=== PATIENT | female | born 1995 | race Caucasian/White ===

== ENCOUNTER → 2019-04-16 13:21 | Outpatient (CLI) | payer BC, SELFPAY ==
[2019-04-16 16:28] LABS: Chlamydia Trachomatis by PCR Negative (Negative); Neisserai gonorrhoeae by PCR Negative (Negative); Probe Check PASS; Sample Adequacy Control PASS; Specimen Processing Control PASS
[2019-04-24 15:00] LABS: HPV APTIMA, High Risk Negative (Negative); HPV Reflexed? YES, CHARGE PATIENT
== END ==
PROVIDERS: Visit Provider Obstetrics & Gynecology
DX: Z12.4 Encounter for screening for malignant neoplasm of cervix (principal); Z11.3 Encounter for screening for infections with a predominantly sexual mode of transmission
CPT/HCPCS: 87491; 87591; 87624; 88175; G0145

== ENCOUNTER → 2019-04-24 06:50 | Outpatient (CLI) | payer BC, SELFPAY ==
[2019-04-24 07:54] LABS: Glucose 75GTT - Fasting 95 mg/dL (70-99)
[2019-04-24 08:37] LABS: Insulin 75GTT - Fasting 10.6 mU/L (2.6-37.6)
[2019-04-24 08:37] LABS: Glucose 75GTT - 30 minutes 179 mg/dL (100-160)
[2019-04-24 08:41] LABS: Glucose 75GTT - 60 minutes 182 mg/dL (100-160)
[2019-04-24 08:55] LABS: Free T3 2.7 pg/mL (2.18-3.98); Prolactin 40.6 ng/mL; T4 Free Direct 1.05 ng/dL (0.76-1.46); Thyroid Stim Hormone (TSH) 3.77 uIU/mL (0.358-3.74)
[2019-04-24 08:56] LABS: Insulin 75GTT - 30 MIN 74.7 mU/L (Not Estab.)
[2019-04-24 08:56] LABS: Insulin 75GTT - 60 min 127.6 mU/L (Not Estab)
[2019-04-24 09:17] LABS: Progesterone Level 0.62 ng/mL (See Comment); Vitamin D,25 Hydroxy 24.6 ng/mL (29.95-100.01)
[2019-04-24 09:51] LABS: Glucose 75GTT - 120 minutes 55 mg/dL (70-140)
[2019-04-24 09:59] LABS: Insulin 75GTT - 120 min 15.8 mU/L (Not Estab.)
[2019-04-25 03:06] LABS: DHEA Sulfate 169.9 ug/dL (110.0-431.7)
[2019-04-27 13:28] LABS: 17-Hydroxyprogesterone 70 ng/dL (.)
[2019-04-27 13:43] LABS: Sex Hormone-binding Globulin 38.4 nmol/L (24.6-122.0)
[2019-04-30 16:07] LABS: Thyroid Peroxidase AB 9 IU/mL (0-34)
[2019-05-02 12:51] LABS: Thyroglobulin Antibody < 1.0 IU/mL (0.0-0.9)
== END ==
PROVIDERS: Referring Provider Obstetrics & Gynecology; Visit Provider Obstetrics & Gynecology
DX: N92.6 Irregular menstruation, unspecified (principal); E28.8 Other ovarian dysfunction
CPT/HCPCS: 36415; 82306; 82533; 82627; 82670; 82951; 82952; 83001; 83498; 83525; 84144; 84146; 84270; 84403; 84439; 84443; 84481; 86376; 86800; 82626

== ENCOUNTER → 2019-07-03 13:03 | Outpatient (CLI) | payer BC, SELFPAY ==
[2019-07-03 17:16] LABS: Chlamydia Trachomatis by PCR Negative (Negative); Neisserai gonorrhoeae by PCR Negative (Negative); Probe Check PASS; Sample Adequacy Control PASS; Specimen Processing Control PASS
== END ==
PROVIDERS: Visit Provider Obstetrics & Gynecology
DX: Z11.3 Encounter for screening for infections with a predominantly sexual mode of transmission (principal)
CPT/HCPCS: 87491; 87591

== ENCOUNTER → 2019-07-21 10:42 | Outpatient (CLI) | payer BC, SELFPAY ==
[2019-07-21 13:45] LABS: Color, Urine Yellow (Yellow); Glucose, Dipstick Normal (Normal); Ketone-Dipstick Negative (Negative); Leukocyte Esterase-Dipstick Negative /ul (Negative); Nitrite-Dipstick Negative (Negative); Occult Blood-Urine Negative /ul (Negative); Protein-Dipstick Negative (Negative); Specific Gravity, Urine 1.015 (1.002-1.030); Urine Bilirubin Dipstick Negative (Negative); Urine Clarity Sl. Cloudy (Clear); Urine Urobilinogen Normal (Normal)
[2019-07-21 13:50] LABS: Absolute Neutrophil Count 6.8 X10^3/uL (2.0-7.7); Basophil# 0.03 X10^3/uL; Basophil% 0.3 % (0-1); Eosinophils% 1.2 % (0-5); Hematocrit 37.5 % (37-47); Hemoglobin 12.8 g/dL (12.0-15.0); Mean Corp Hgb Conc 34.1 g/dL (32-36); Mean Corpuscular Hgb 29.5 pg (27.0-32.0); Mean Corpuscular Volume 86.4 fL (81-99); Mean Platelet Vol. 10.4 fl (6.2-12.0); Monocyte# 0.39 X10^3/uL; Monocyte% 4.5 % (0-10); NRBC Flagged by Analyzer 0 % (0-5); Neutrophil # 6.84 X10^3/uL (2.7-7.7); Neutrophil % 78.8 % (47-70); Platelet Count 257 K/mm3 (150-450); RBC Distribution Width CV 12.8 % (11.6-14.6); RBC Distribution Width SD 39.8 fl (35.1-43.9); Red Blood Count 4.34 M/mm3 (4.2-5.4); White Blood Count 8.7 K/mm3 (4.4-11.0)
[2019-07-21 14:05] LABS: Thyroid Stim Hormone (TSH) 1.03 uIU/mL (0.358-3.74)
[2019-07-21 14:07] LABS: Amphetamine Urine VISTA NEGATIVE (<1000 ng/mL); Barbiturate Urine VISTA NEGATIVE (< 200 ng/mL); Benzodiazepine Urine VISTA NEGATIVE (< 200 ng/mL); Cocaine Urine VISTA NEGATIVE (< 300 ng/mL); Ecstacy Urine VISTA NEGATIVE (< 500 ng/mL); Methadone Urine VISTA NEGATIVE (< 300 ng/mL); PCP Urine VISTA NEGATIVE (< 25 ng/mL); THC Urine VISTA POSITIVE (< 50 ng/mL); Vista UDS pH Range 6
[2019-07-21 14:48] LABS: HIV - WCH Non-Reactive (Nonreactive); Hepatitis B Surface Antigen Non-Reactive (Nonreactive); Hepatitis C Antibody Non-Reactive (Nonreactive); Vitamin D,25 Hydroxy 32.8 ng/mL (29.95-100.01)
[2019-07-24 00:56] LABS: Prenatal RPR NONREACTIVE (NONREACTIVE)
== END ==
PROVIDERS: Visit Provider Obstetrics & Gynecology
DX: Z34.81 Encounter for supervision of other normal pregnancy, first trimester (principal)
CPT/HCPCS: 36415; 80307; 81002; 82306; 84443; 85025; 86703; 86762; 86803; 87340

== ENCOUNTER → 2019-12-09 09:47 | Outpatient (CLI) | payer BC, SELFPAY ==
[2019-12-09 10:47] LABS: Hematocrit 32.9 % (37-47); Hemoglobin 11.3 g/dL (12.0-15.0); Mean Corp Hgb Conc 34.3 g/dL (32-36); Mean Corpuscular Hgb 30.2 pg (27.0-32.0); Mean Platelet Vol. 10.5 fl (6.2-12.0); Platelet Count 189 K/mm3 (150-450); RBC Distribution Width CV 13.2 % (11.6-14.6); RBC Distribution Width SD 41.9 fl (35.1-43.9); Red Blood Count 3.74 M/mm3 (4.2-5.4); White Blood Count 12.9 K/mm3 (4.4-11.0)
[2019-12-09 11:29] LABS: Glucose Challenge Gest 1H 50g 189 mg/dL (70-140); T4 Free Direct 0.77 ng/dL (0.76-1.46); Thyroid Stim Hormone (TSH) 2.08 uIU/mL (0.358-3.74)
== END ==
PROVIDERS: Visit Provider Obstetrics & Gynecology
DX: O99.283 Endocrine, nutritional and metabolic diseases complicating pregnancy, third trimester (principal); E55.9 Vitamin D deficiency, unspecified; E03.9 Hypothyroidism, unspecified; Z3A.00 Weeks of gestation of pregnancy not specified
CPT/HCPCS: 36415; 82306; 82950; 84439; 84443; 85027

== ENCOUNTER → 2019-12-19 10:00 | Outpatient (CLI) | payer BC, SELFPAY ==
[2019-12-19 11:10] LABS: Glucose GTT-Gestation. Fasting 90 mg/dL (<105)
[2019-12-19 11:48] LABS: Glucose GTT-Gestational 1 Hr 173 mg/dL (<190)
[2019-12-19 13:29] LABS: Glucose GTT-Gestational 2 Hr 163 mg/dL (<165)
[2019-12-19 13:55] LABS: Glucose GTT-Gestational 3 Hr 85 L (<145)
== END ==
LOC: LAB 10:03
PROVIDERS: Referring Provider Obstetrics & Gynecology; Visit Provider Obstetrics & Gynecology
DX: O24.419 Gestational diabetes mellitus in pregnancy, unspecified control (principal); Z3A.00 Weeks of gestation of pregnancy not specified
CPT/HCPCS: 36415; 82951; 82952

== ENCOUNTER → 2020-02-03 | Outpatient (CLI) | payer BC, SELFPAY | END | disposition home or self-care (01) | LOC: LABSPEC 14:58 | PROVIDERS: Visit Provider Obstetrics & Gynecology | DX: Z36.85 Encounter for antenatal screening for Streptococcus B (principal) | CPT/HCPCS: 87081 ==

== ENCOUNTER → 2020-02-16 10:35 | Outpatient (CLI) | payer BC, SELFPAY | PROVIDERS: Referring Provider Obstetrics & Gynecology; Visit Provider Obstetrics & Gynecology | DX: Z34.03 Encounter for supervision of normal first pregnancy, third trimester (principal); Z11.59 Encounter for screening for other viral diseases | CPT/HCPCS: 87635; G2023; U0003 ==

== ENCOUNTER 2020-02-21 07:13 | Inpatient (IN) | payer BC, SELFPAY ==
[2020-02-21] VITALS (44 sets, daily range): BP systolic 99–196; BP diastolic 56–98; PULSE 81–100; TEMP 35.8–37.6; O2SAT 94–98; BMI 39.0
[2020-02-21] MEDS: Lactated Ringers 1,000 ML 50 ML IV (07:50)
[2020-02-21 08:26] LABS: Absolute Lymphocyte Count 1.52 X10^3/uL (0.83-4.51); Absolute Neutrophil Count 9.3 X10^3/uL (2.0-7.7); Basophil# 0.02 X10^3/uL; Basophil% 0.2 % (0-1); Eosinophils% 0.9 % (0-5); Hematocrit 31.5 % (37-47); Hemoglobin 10.4 g/dL (12.0-15.0); Lymphocyte # 1.52 X10^3/ul (4.0); Lymphocyte % 12.9 % (19-41); Mean Corpuscular Hgb 28.4 pg (27.0-32.0); Mean Corpuscular Volume 86.1 fL (81-99); Mean Platelet Vol. 11.5 fl (6.2-12.0); Monocyte# 0.71 X10^3/uL; NRBC Flagged by Analyzer 0 % (0-5); Neutrophil % 79.2 % (47-70); Platelet Count 216 K/mm3 (150-450); RBC Distribution Width CV 13.6 % (11.6-14.6); RBC Distribution Width SD 42.3 fl (35.1-43.9); Red Blood Count 3.66 M/mm3 (4.2-5.4); White Blood Count 11.7 K/mm3 (4.4-11.0)
[2020-02-21] MEDS: Oxytocin 30 units/NS 500 ml 30 UNITS/500 ML IV.SOLN IV (08:47)
[2020-02-21 08:50] LABS: Amphetamine Urine VISTA NEGATIVE (<1000 ng/mL); Barbiturate Urine VISTA NEGATIVE (< 200 ng/mL); Benzodiazepine Urine VISTA NEGATIVE (< 200 ng/mL); Cocaine Urine VISTA NEGATIVE (< 300 ng/mL); Ecstacy Urine VISTA NEGATIVE (< 500 ng/mL); Methadone Urine VISTA NEGATIVE (< 300 ng/mL); PCP Urine VISTA NEGATIVE (< 25 ng/mL); THC Urine VISTA NEGATIVE (< 50 ng/mL); Vista UDS pH Range 6
--- NOTE | 2020-02-21 10:01 | HP.PCM_ITS ---
- Problem List (1) 39 weeks gestation of Status: Acute History Date of Admission: 02/21/20 Final CHRIS: 02/28/20 Final CHRIS Source: US <20 weeks Gestational age: 39 Weeks and 0 Days History of this : This is a 24 year-old, G [1], P [], at 39 weeks gestational age presenting for elective induction of labor. She is without complaints. Reports good movement. Has mild contractions. Medical History: Medical History (Last Updated 02/21/20 @ 10:[address] Shaista Daniels MD) Insulin resistance E88.81 Subclinical hypothyroidism E03.9 Allergies Penicillins Allergy (Verified 02/21/20 07:57) Rash Home Medications: Home Medications Acetaminophen 650 mg PO Q8H 02/21/20 Smoking Status: Never smoker Alcohol: None Substance Use Type: Marijuana Number of Fetus(es): 1 NST - FHR Rate Baby A Baseline: 130 Variability:: Moderate Accelerations:: 15 x 15 Decelerations:: None NST Reactive:: Yes FHR Category:: Category I Uterine Activity:: 1-2/10 min History Past Pregnancies: Past Pregnancies Delivery Date Name GA/ Weeks Outcome Route Wt Infant Sex Labor Length Anesthesia Delivery Location Provider FOB Labs: Mom's Problem List Problem Status Onset Code 39 weeks gestation of Acute Z3A.39 Mom's Labs & Results 02/21/20 02/21/20 02/21/20 07:30 07:30 07:30 WBC 11.7 H RBC 3.66 L Hgb 10.4 L Hct 31.5 L MCV 86.1 MCH 28.4 MCHC 33.0 RDW Std Deviation 42.3 RDW Coeff of Baldemar 13.6 Plt Count 216 MPV 11.5 Immature Gran % (Auto) 0.800 Neut % (Auto) 79.2 H Lymph % (Auto) 12.9 L Sweet Grass % (Auto) 6.0 Eos % (Auto) 0.9 Baso % (Auto) 0.2 Absolute Neuts (auto) 9.3 H Absolute Lymphs (auto) 1.52 Nucleated RBC % 0 Urine Opiates Screen NEGATIVE Urine Methadone Screen NEGATIVE Ur Barbiturates Screen NEGATIVE Ur Phencyclidine Scrn NEGATIVE Ur Amphetamines Screen NEGATIVE U Methamphetamin-MDMA NEGATIVE U Benzodiazepines Scrn NEGATIVE Urine Cocaine Screen NEGATIVE U Cannabinoids Screen NEGATIVE Ur Drug Screen Comment Blood Type A POSITIVE Antibody Screen NEGATIVE Course Did the patient receive Yes care? Labs Blood Type: A RH: POSITIVE RPR/VDRL/Syphilis Nonreactive Rubella status Immune HbSAg Negative Date Done: 07/21/19 Chlamydia Negative Gonorrhea Negative HIV/AIDS Non-Reactive Group B Strep: Negative Current Obstetrical History Gestational Diabetes No Incompetent Cervix No Infertility No IUGR No Macrosomia Yes Hypertension/Pre-eclampsia No Placenta Previa/Abruption No PTL/PROM No Uterine anomaly No Oligohydramnios No Polyhydramnios No Multiple gestation No Past Medical History Asthma No Diabetes No Hypertension No Heart disease No Mitral valve prolapse No Neurologic/Seizure disorder/ No Migraines Kidney disease No Liver disease No Varicosities No Clotting disorders/Hx of DVT No Thyroid Dysfunction Yes: hypothyroid Other medical diseases No Psychiatric disorders No Major trauma No Abnormal PAP smear No Sleep apnea No Mammogram in the last 2 years No Social History Marital Status: SINGLE Alleged father Daniel Hx Smoking No Smoking Status Never smoker Substance Use Type Marijuana How long have you used 2 years substances (years)? What date/time did you last May 2019, Thanksgiving use any of the above? Have you had any previous No inpatient or outpatient treatment Expected Infant Delivery Method: Spontaneous Vaginal Number of Visits: 12 Review of Systems Constitutional: Denies: Chills, Fever, Fatigue HEENT: Denies: Head Aches, Visual Changes Cardiovascular: Denies: Chest Pain Respiratory: Denies: Shortness of Breath Gastrointestinal: Denies: Abdominal Pain, Nausea, Vomiting Gynecological: Denies: Vaginal bleeding Physical Exam Vitals: Vital Signs Temp Pulse BP Pulse Ox 99.1 F 93 127/68 H 97 02/21/20 09:32 02/21/20 09:32 02/21/20 09:32 02/21/20 09:32 General: Alert, Oriented x3, Cooperative, No apparent distress HEENT: Atraumatic, Normocephalic Cardiovascular: Regular rate, Regular Rhythm, Normal S1, Normal S2 Lungs: Clear to auscultation, Normal air movement Abdomen: Soft, Non Tender, Non-Distended, Gravid Neurological: Neuro grossly intact Presentation: Cephalic Cervix Dilation (cm): 3 - per RN exam [place] Station: -3 Effacement (%): 60 Assessment/Plan All Active Problems (Last Updated 02/21/20 @ 10:[address] Shaista Daniels MD) 39 weeks gestation of (Acute) This is a 24 year-old, G [1], P [], at 39 weeks gestational age -EFW 4100g -Outpatient COVID19 test negative -Proceed with pitocin as planned -Maternal and statuses reassuring
[2020-02-21] MEDS: Lactated Ringers 500 ML 999 ML IV (15:37)
[2020-02-21] MEDS: fentaNYL-bupivacaine (epidural) 100 ML BAG EPIDURAL ×2 (16:32→21:09)
[2020-02-21] MEDS: Lactated Ringers 1,000 ML 200 ML IV ×2 (18:18→22:23)
--- NOTE | 2020-02-21 20:15 | PCM.PN.BLA ---
Progress Note LABOR PROGRESS NOTE Comfortable with epidural, no complaints. Feels well. AVSS GEN - NAD, AAO x 3 SVE 5/70/-2 per RN exam at 1944h TOCO 5/10 min FHR 115, moderate variability, +accelerations, no decelerations A/P: 24yo G1 @ 39wga, IOL on pitocin, s/p amniotomy, Cat I FHR -Continue pitocin as tolerated by mother and fetus. -Maternal and statuses reassuring. STROKE Vital Signs/Narrative: Vital Signs Temp Pulse BP Pulse Ox 02/21/20 20:34 85 128/76 H 02/21/20 20:33 81 196/90 H 02/21/20 20:32 98.0 F 97 02/21/20 19:23 97.1 F L 82 135/71 H 97 02/21/20 18:21 96.9 F L 86 131/83 H 97 02/21/20 17:31 97.1 F L 86 122/72 H 98 02/21/20 17:03 82 122/77 H 02/21/20 16:59 92 97 02/21/20 16:58 86 123/81 H 02/21/20 16:54 91 97 02/21/20 16:53 99 128/85 H
[2020-02-21] MEDS: Acetaminophen 325 MG Tablet PO (22:22)
[2020-02-22] VITALS (64 sets, daily range): BP systolic 115–159; BP diastolic 57–97; PULSE 80–122; TEMP 36.2–37.5; O2SAT 93–100
[2020-02-22] MEDS: fentaNYL-bupivacaine (epidural) 100 ML BAG EPIDURAL ×5 (02:34→21:40)
[2020-02-22] MEDS: Lactated Ringers 1,000 ML 200 ML IV ×5 (03:15→23:53)
[2020-02-22] MEDS: Acetaminophen 325 MG Tablet PO ×2 (05:24→18:27)
--- NOTE | 2020-02-22 08:00 | PCM.PN.BLA ---
Progress Note LABOR PROGRESS NOTE No complaints. Was nauseated prior, but now resolved. AVSS GEN - NAD, AAO x 3 FHR 120, moderate variability, + accelerations, no decelerations TOCO 3/10 min SVE deferred A/P: 24yo G1 @ 39 1/7 weeks gestation, IOL s/p amniotomy, on pitocin with Cat I FHR -Offered patient section given cervix unchanged > 12 hours at 5cm with review of r/b, however, I suspect she is not in active labor and recommended continued trial of labor. Following discussion, pt opts for trial of labor. -Pitocin resumed at 2mu/min at approximately 7am. Will titrate as tolerated by mother and fetus -Prolonged rupture of membranes, no evidence of infection -Maternal and statuses reassuring. STROKE Vital Signs/Narrative: Vital Signs Temp Pulse BP Pulse Ox 02/22/20 07:13 87 126/85 H 02/22/20 07:12 97.8 F 100 02/22/20 06:26 97.9 F 88 133/79 H 98 02/22/20 05:32 85 139/73 H 02/22/20 05:31 98.4 F 88 99 02/22/20 04:27 81 130/62 H 02/22/20 04:26 97.5 F L 95
--- NOTE | 2020-02-22 12:53 | PCM.PN.BLA ---
Progress Note LABOR PROGRESS NOTE No complaints. AVSS GEN - NAD, AAO x 3 FHR 135, moderate variability, + accelerations, no deceleration TOCO 2/10 min SVE 7/90/-3, soft and midposition A/P: 24yo G1 @ 39 1/7wga, in active labor, on pitocin, Cat I FHR -IUPC replaced -Will continue pitocin as tolerated by mother and fetus STROKE Vital Signs/Narrative: Vital Signs Temp Pulse BP Pulse Ox 02/22/20 12:49 106 H 131/73 H 100 02/22/20 12:02 98.2 F 94 128/72 H 98 02/22/20 10:42 98.2 F 100 129/85 H 98 02/22/20 09:47 88 115/59 L 02/22/20 09:46 98.1 F 98
[2020-02-22] MEDS: DiphenhydrAMINE 50 MG/ML Syringe 25 MG IV (18:50)
--- NOTE | 2020-02-22 21:24 | PCM.PN.BLA ---
Progress Note LABOR PROGRESS NOTE No complaints. AVSS GEN - NAD, AAO x 3 FHR 150, moderate variability, + accelerations, no decelerations TOCO 3/10 min SVE 9.5/90/-1, mild caput present, cephalic A/P: 24yo G1 @ 39 1/7 wga in active labor, Cat I FHR -Prolonged ROM with no evidence of infection -Continue pitocin as tolerated by mother and fetus -Maternal and statuses reassuring STROKE Vital Signs/Narrative: Vital Signs Temp Pulse BP Pulse Ox 02/22/20 21:13 108 H 98 02/22/20 21:12 98.7 F 116 H 134/74 H 97 02/22/20 21:08 111 H 98 02/22/20 21:03 111 H 98 02/22/20 20:58 107 H 96 02/22/20 20:53 108 H 97 02/22/20 20:48 104 H 97 02/22/20 20:43 105 H 97 02/22/20 20:38 116 H 99 02/22/20 20:33 109 H 98 02/22/20 20:28 119 H 99 02/22/20 20:23 117 H 120/71 98 02/22/20 20:22 97.9 F 02/22/20 20:18 122 H 99 02/22/20 20:13 107 H 98 02/22/20 20:08 109 H 97 02/22/20 20:03 106 H 99 02/22/20 19:58 110 H 95 02/22/20 19:55 106 H 94 02/22/20 19:53 105 H 94 02/22/20 19:50 107 H 94 02/22/20 19:48 107 H 95 20 19:45 97 93 02/22/20 19:43 105 H 96 02/22/20 19:39 104 H 94 02/22/20 19:38 106 H 96 02/22/20 19:33 106 H 97 02/22/20 19:15 98.0 F 118 H 133/73 H 97 02/22/20 18:29 114 H 137/82 H 02/22/20 17:52 108 H 130/70 H 99 02/22/20 17:51 98.7 F
--- NOTE | 2020-02-22 23:46 | PCM.PN.BLA ---
Progress Note LABOR PROGRESS NOTE No complaints. Reports feeling a bit of pressure. Tm/c 99.5, VSS GEN - NAD, AAO x 3 FHR 155, moderate variability, + 10 x 10 accelerations, no deceleratoins TOCO 2/10 min SVE FD/-1 station with caput A/P: 24yo G1 @ 39 1/7wga in labor, Cat I FHR on pitocin -Start pushing -Maternal and statuses reassuring STROKE Vital Signs/Narrative: Vital Signs Temp Pulse BP Pulse Ox 02/22/20 23:42 99.5 F H 02/22/20 23:36 98.2 F 115 H 147/78 H 98 02/22/20 22:28 98.6 F 121 H 129/57 H 99 02/22/20 21:13 108 H 98 02/22/20 21:12 98.7 F 116 H 134/74 H 97 02/22/20 21:08 111 H 98 02/22/20 21:03 111 H 98 02/22/20 20:58 107 H 96 02/22/20 20:53 108 H 97 02/22/20 20:48 104 H 97 02/22/20 20:43 105 H 97 02/22/20 20:38 116 H 99 02/22/20 20:33 109 H 98 02/22/20 20:28 119 H 99 02/22/20 20:23 117 H 120/71 98 02/22/20 20:22 97.9 F 02/22/20 20:18 122 H 99 02/22/20 20:13 107 H 98 02/22/20 20:08 109 H 97 02/22/20 20:03 106 H 99 20 19:58 110 H 95 20 19:55 106 H 94 20 19:53 105 H 94 20 19:50 107 H 94 20 19:48 107 H 95
[2020-02-23] VITALS (153 sets, daily range): BP systolic 82–154; BP diastolic 42–83; PULSE 89–219; RESP 14–19; TEMP 36.2–37.9; O2SAT 87–100
[2020-02-23] MEDS: Acetaminophen 325 MG Tablet PO (00:27)
[2020-02-23] MEDS: Ondansetron 4 MG/2 ML Vial IV (01:09)
[2020-02-23] MEDS: fentaNYL-bupivacaine (epidural) 100 ML BAG EPIDURAL (02:38)
[2020-02-23] MEDS: Oxytocin 30 units/NS 500 ml 30 UNITS/500 ML IV.SOLN 16 UNITS IV (03:39)
--- NOTE | 2020-02-23 04:00 | PCM.PN.BLA ---
Progress Note LABOR PROGRESS NOTE -- Entry for approximately 0400h No complaints. AVSS GEN - NAD, AAO x 3 FHR 145, moderate variability, + accelerations, no decelerations. TOCO 3/10 min SVE FD/+1 station A/P: 24yo G1 @ 39 2/7wga in labor, Cat I FHR -Pushing for 4 hours, primip with descent from -1 to +1 station. -Discussed section with review of risks, benefits versus continue pushing given protracted second stage. Patient opts to continue pushing at this time. -Will reassess in 1 hour. STROKE Vital Signs/Narrative: Vital Signs Temp Pulse BP Pulse Ox 02/23/20 05:11 98.4 F 114 H 129/83 H 99 02/23/20 04:30 98.5 F 129 H 154/69 H 98
[2020-02-23] MEDS: Dextrose 5%-Lactated Ringers 1,000 ML 200 ML IV (04:04)
[2020-02-23] MEDS: Sodium Citrate/Citric Acid 30 ML UDC PO (05:25)
--- NOTE | 2020-02-23 07:59 | PCM.OPRPT ---
Problem List (1) 39 weeks gestation of Status: Acute (2) Arrest of descent, delivered, current hospitalization Status: Acute (3) Delivery by section Status: Acute Report of Operation Description of Surgical Findings:: Infant weight [id number] Delivery Classification: LIYAH Final CHRIS: 02/28/20 Final CHRIS Source: US <20 weeks Gestational age: 41 Weeks and 0 Days doctor who attended delivery (if requested by OB): Malena Hayden hearing aide technician: Hallie Gentile Kristin RNFA Type of Anesthesia:: Epidural, Sedation,Conscious Date of Procedure: 02/23/20 Pre-Operative Diagnosis: 1. 39 2/7 weeks gestational age. 2. Macrosomia. 3. Arrest of descent Post-Operative Diagnosis: 1. 39 2/7 weeks gestational age. 2. Macrosomia. 3. Arrest of descent Indications: 24yo G1 @ 39 2/7 weeks gestational age admitted at 39 weeks gestation for elective induction of labor for macrosomia with EFW 4100g. Patient progressed second stage with descent from -1 to +1 station over 5 hours. She was advised to proceed with section. Procedural r/b/i/a reviewed. Indications for : Arrrest of Descent Description of Procedure: Patient was brought to the operating room and sign in performed. She was placed in the dorsal supine position with left lateral tilt. The perineum/vagina and abdomen were prepped and draped in sterile fashion. The epidural was found to be adequate. A Pfannenstiel incision was made using the scalpel and brought down to incise the rectus fascia at the midline. The fascia incision was extended laterally. The superior leaflet of the rectus fascia was grasped with Geovanni clamps and sharply and bluntly dissected from the underlying muscle. In similar fashion the inferior rectus fascia was from the underlying muscle. The rectus muscles were at the midline and peritoneum bluntly entered. The peritoneal incision was extended bluntly and sharply. The bladder blade was placed into the abdomen. The vesicouterine peritoneum was identified and a bladder flap created. The hysterotomy was performed with Metzembaum scissors. On palpation, the head was impacted in the maternal pelvis. The abdominal incision was widened and rectus muscles incised. The head was unable to be destationed despite transvaginal attempts. I called for assistance from another physician. A breech extraction was attempted, with delivery of both infant feet via the hysterotomy however the fundus was contracted preventing further delivery. The hysterotomy was extended with T incision and a midline T extension of the laparotomy performed. Dr. Gentile scrubbed in about this time to assist me further. The patient administered propofol for pain control with added uterine relaxation and the T extension was further extended. The lower extremities were delivered to the hips, the hips were supported with a damp towel and using gentle bidirectional rotation the infant was delivered to the shoulders with delivery of the upper extremities. The [id number]-Ksigvos-Sqtu maneuver was employed with delivery of the head. The cord was immediately doubly clamped and cut and the infant passed to the awaiting Pediatric Hospitalist and nursery personnel. The placenta was expressed from the uterus. The uterus was exteriorized and cleared of debris. The T-extension was repaired with two layers of 0-Vicryl and a third serosal reapproximation with 3-0 monocryl. The low transverse hysterotomy was repaired using two layers of 0 Vicryl with good hemostasis. The uterus and adnexae were returned to the abdomen. The peritoneum was reapproximated using 2-0 Vicryl. The T-extension rectus fascia, then the Pfannensteil rectus fascia were reapproxiated with 0 Stratafix running suture. The T-subcutaneous tissue was reapproximated in two layers with 2-0 Vicryl running suture. The Pfannenstiel subcutaneous tissue was reapproximated in a single layer of 2-0 Vicryl running suture. The skin was reapproximated using 4-0 Monocryl. Steristrips were applied to the incisions then covered by Mepilex silver occlusive dressing. The fundus was firm. Patient was transferred to the recovery/. Sponge and instrument counts were correct x 2. Amniotic Membrane Rupture Type: Artificial Amniotic Fluid Description: Clear Placenta Disposition: Sent with transport team Drain: Valentin to straight drain Fluids Replaced: 2000 ml Cord Entanglement: - - around leg and body Nuchal Cord Compression: Without compression Cord Vessel Description: 3 Vessels Esitmated Blood Loss (ml): 1500 ml Infant Gender: Male (1 minute): 2 (5 minute): 4 - 6, 8 Delayed cord clamping: No Antibiotic Given: Ancef 3 grams IV x1 Pt instructed on risks of surgery: Bleeding, Infection, Failure Rate of 1 to 2%, Injury to surrounding structure(s) including bowel and bladder Complications: None - Admit VTE Documentation VTE Present on Admission: No VTE Mechan Device Prophylaxis: SCD's VTE Pharm Prophylaxis ordered?: Yes
[2020-02-23] MEDS: Oxytocin 30 units/NS 500 ml 30 UNITS/500 ML IV.SOLN 167 UNITS IV (08:00)
[2020-02-23] MEDS: Acetaminophen 500 MG Tablet 1000 MG PO ×3 (09:05→21:10)
--- NOTE | 2020-02-23 09:48 | NURSING ---
0900 Began mother with pumping with a double electric breast pump and hand expression, mother still sleepy from surgery but willing and asking questions about pumping and hand expression, appeared very happy with the amount we were able to get for the first time. 1.5 cc and oral swab collected during first session. Explained importance of breast massage and hand expression.Plan: pump every 3 hours around clock followed by some hand expression for collection.
[2020-02-23] MEDS: Lactated Ringers 1,000 ML 100 ML IV (11:07)
[2020-02-23] MEDS: Senna/Docusate Sodium 1 Tablet PO (12:28)
[2020-02-23] MEDS: Heparin Injection (Vial) 5,000 UNIT/ML VIAL 5000 UNIT SC ×2 (12:29→23:53)
[2020-02-23] MEDS: Ketorolac 30 MG/ML Syringe IV ×3 (12:29→23:53)
[2020-02-23] MEDS: Cefazolin 1 GM/50 ML BAG IV ×2 (13:48→21:58)
--- NOTE | 2020-02-23 19:00 | CASEMGMT ---
Social Work Assessment Labor and Delivery Unit Date of Referral: 02/23/2020 Time of Referral: 10:36 Referred By: Dr. Alexis Daniels Date of Intervention: 02/23/2020 Time of Intervention: 19:00 Reason for Referral: Infant transferred to [facility]. Mother of baby (MOB) with Hx of THC use. History obtained from: MOB, Chart, nursing staff. Household composition: MOB and Father of baby (FOB), Daniel Arredondo along with now this infant, Anton Arredondo have private home together. Patient's parent/guardian status: MOB and FOB have been together for 3 ? years. MOB reports positive support from FOB. This is first infant for both MOB and FOB. MOB reports that was planned but unexpected as MOB thought that MOB was not able to get as ?we were trying for a while.? Medical History: MOB with history of prior to delivery of this infant. MOB with appropriate care visits. Infant born on 02/23/2021 and was transferred to [facility] special care nursery for further monitoring due to complications. MOB was induced on 02/21/2020 and ended up with a T on 02/23/2020. Infant with Apgars of 2, 4, 6, 8 at 1min, 5min, 10min and 15min. with weight of 4460g. MOB plans for Dr. Rousseau to be following house principal. MOB plans to pump at this time due to not being able to be with and states ?it is going well.? MOB?s long-term goal is to breastfeed infant. Educational Status: MOB denies any issues with comprehension or understanding. Financial Status: MOB denies any financial concerns. MOB works full-time at [employer] and has maternity leave. FOB works full-time at [employer] and has time off unpaid. Supplies: MOB reports to have all needed supplies for include crib and car seat. MOB states to have a pump to be able to continue to pump milk for . FOB was able to bring some of MOB milk up to [facility] for infant to have. Childcare/Caregiver(s): MOB plans to be primary caregiver initially for . Transportation: Denies concerns. Programs/Agencies Involved: None. Children Services/Legal Issues: Denies Mental Health History: MOB denies any mental health history. MOB denies any history suicidal thoughts/plans/intents. MOB educated on signs symptoms of depression (PPD) and anxiety . MOB aware of MOB?s risk for PPD due to complicated delivery and infant being transferred. Substance Use History: MOB open with THC usage prior to . MOB states last use of THC was 2018. MOB states to have used THC ?recreationally.? MOB states to have stopped using THC when discovered and plans to no longer use. MOB states that FOB also used THC recreationally and has since stopped as well. MOB states safety plan for in the event that MOB/FOB would be using would to not be around and that infant would be with trusted family/friends. MOB denies any other substance abuse/use for MOB or FOB. Family History: Did not discuse. Maternal and Infant Drug Screens: MOB with positive tox screen on 07/21/2019 for THC. MOB with negative tox on admission to labor and delivery. No tox screen was able to be obtained for infant due to transfer. PHQ9: Did not trigger. Family/Social Stressors: Denies any stressors outside of infant being transferred. Support Systems: Reports ?I have lots of support.? Depression and Anxiety/Shaken Baby/Safe Sleeping: Was able to facilitate conversation with MOB about PPD and Anxiety as noted above. Provided MOB with resources on PPD/Anxiety, [facility], Shaken Baby and Safe Sleeping. MOB able to responds appropriately to prompts in regards to Shaken Baby and Safe Sleeping. ASSESSMENT: Met with MOB in room. Introduced self and social media designer role. FOB is in [place] with infant. MOB states hope/goal to be able to be cleared for discharge tomorrow to be able to go and be with . MOB states to be ?working hard? at pumping and per nursing report MOB has been producing a good supply of milk. This social media designer positively acknowledging MOB?s efforts and encouraging MOB to continue to pump. MOB states ?I didn?t know I had that much? and smiles in regards to this. MOB is tearful throughout conversation about infant and birthing experience for MOB. Active listening and emotional support provided. MOB states to have family in [place] and ?lots of support.? MOB states that family/friends have been checking in with patient and that has helped MOB while MOB waits to be medically cleared. MOB aware of need to take care of self in order to care for . MOB identifies no concerns other then wanting to have a healthy baby. Safe Plan of Care for related to substance use: Plans to no longer use THC but if MOB or FOB would change this decision plan would be for to be with trusted family/friends. PLAN: MOB to discharge to community when cleared. transferred to [facility]. No other services requested or indicated. Will continue to follow as needed. Aminata Cochran MSW, JOHNNA
--- NOTE | 2020-02-23 21:14 | NURSING ---
Patient not feeling the urge to void but taking in moderate oral intake. Lactated Ringers going at 100ml/hr. Encouraged patient to get up to void and patient was able to void 125-150 ml of yellow urine. [place] like any urge she had to void was soothed by this void. Told patient to increase oral intake and attempt to void again in the next 1-2 hours. Will bladder scan patient at that time if she is still unable to void and assess need for straight catheterization.
[2020-02-23] MEDS: 0.9% Saline Lock 10 ML Syringe IV ×2 (22:21→23:53)
[2020-02-24] VITALS (11 sets, daily range): BP systolic 104–119; BP diastolic 58–63; PULSE 98–113; RESP 14–18; TEMP 36.2–36.6; O2SAT 97–100
[2020-02-24] MEDS: Acetaminophen 500 MG Tablet 1000 MG PO ×3 (03:09→15:58)
[2020-02-24] MEDS: 0.9% Saline Lock 10 ML Syringe IV (05:44)
[2020-02-24] MEDS: Levothyroxine 50 MCG Tablet PO (05:44)
[2020-02-24] MEDS: Ketorolac 30 MG/ML Syringe IV (05:44)
[2020-02-24 05:46] LABS: Hematocrit 22.6 % (37-47); Hemoglobin 7.5 g/dL (12.0-15.0); Mean Corp Hgb Conc 33.2 g/dL (32-36); Mean Corpuscular Hgb 28.6 pg (27.0-32.0); Mean Corpuscular Volume 86.3 fL (81-99); Mean Platelet Vol. 11.1 fl (6.2-12.0); Platelet Count 167 K/mm3 (150-450); RBC Distribution Width CV 14.6 % (11.6-14.6); RBC Distribution Width SD 45.1 fl (35.1-43.9); Red Blood Count 2.62 M/mm3 (4.2-5.4)
[2020-02-24] MEDS: Senna/Docusate Sodium 1 Tablet PO (07:50)
--- NOTE | 2020-02-24 08:36 | PCM.PN.OB ---
Patient Problems: Active and Suspected Problems 39 weeks gestation of (Acute) Arrest of descent, delivered, current hospitalization (Acute) Delivery by section (Acute) Subjective: Pain controlled, OOB and ambulating and voiding without difficulty. Passing flatus, no bowel movement yet. Was lightheaded when first got out of bed, but now resolved. Denies nausea or vomiting. Has good appetite. Request discharge today. Objective: avss - Physical Exam Vitals/I&O's: Vital Signs Temp Pulse Resp BP Pulse Ox 97.8 F 113 H 15 112/63 98 02/24/20 07:42 02/24/20 07:42 02/24/20 07:42 02/24/20 07:42 02/24/20 06:30 Oxygen Flow Rate (L/min) 2 Oxygen Delivery Method Room Air Weight: 120 kg Body Mass Index (BMI) 39.0 Intake and Output for Last 24 Hours 02/22/20 02/23/20 02/24/20 23:59 23:59 23:59 Intake Total 6627.44 / 6627.44 3503.44 / 3503.44 Output Total 5900 / 5900 1050 / 1050 1450 / 1450 Balance 727.44 / 727.44 2453.44 / 2453.44 -1450 / -1450 General: Alert, Oriented x3, Cooperative, No apparent distress HEENT: Atraumatic, Normocephalic Lungs: Clear to auscultation, Normal air movement Cardiovascular: Regular rate, Regular Rhythm, Normal S1, Normal S2 Abdomen: Soft, Non Tender, Non-Distended, Hypoactive Bowel Sounds, - - Incisional dressings with minimal saturation <5%, fundus firm and nontender, lochia scant Extremities: No Calf Tenderness, - - +1 b/l LE edema Neurological: Neuro grossly intact Psych/Mental Status: Normal Affect, Appropriate, Alert and oriented to time, place, person, mood and affect Laboratory Results 02/24/20 05:40: WBC 16.0 H, RBC 2.62 L, Hgb 7.5 L, Hct 22.6 L, MCV 86.3, MCH 28.6, MCHC 33.2, RDW Std Deviation 45.1 H, RDW Coeff of Baldemar 14.6, Plt Count 167, MPV 11.1 Current Medications Acetaminophen (Tylenol) 1,000 mg PO Q6H [facility] Last Admin: 02/24/20 03:09 Dose: 1,000 mg Documented by: Bisacodyl (Dulcolax) 10 mg RECTAL UD PRN PRN Reason: If no BM Heparin Sodium (Porcine) (Heparin Na) 5,000 unit SC Q12H [facility] Last Admin: 02/23/20 23:53 Dose: 5,000 unit Documented by: Hydrocortisone (Hytone) 1 applic TOPICAL TID PRN PRN; Protocol PRN Reason: Discomfort Lactated Ringer's () 1,000 mls @ 100 mls/hr IV .Q10H [facility] Last Admin: 02/24/20 03:10 Dose: Not Given Documented by: Naloxone HCl 4 mg/ Dextrose 504 mls @ 0 mls/hr IV .Q0M PRN; Protocol PRN Reason: Respiratory depression Ibuprofen (Motrin) 600 mg PO Q6H [facility] Levothyroxine Sodium (Synthroid) 50 mcg PO DAILY@0600 [facility] Last Admin: 02/24/20 05:44 Dose: 50 mcg Documented by: Methylergonovine Maleate (Methergine) 0.2 mg IM X1 PRN PRN Reason: Uterine Atony Naloxone HCl (Narcan) 0.02 mg IV Q1M PRN PRN Reason: RR <10 and pt unresponsive Ondansetron HCl (Zofran) 4 mg IV Q4H PRN PRN PRN Reason: NAUSEA Last Admin: 02/23/20 01:09 Dose: 4 mg Documented by: Oxycodone HCl (Oxyir) 5 - 10 mg PO Q4H PRN PRN PRN Reason: Pain Score 4-10/10 Prochlorperazine Edisylate (Compazine Iv) 10 mg IV Q6H PRN PRN PRN Reason: NAUSEA Senna/Docusate Sodium (Senokot-S, Hillary-Colace) 0 tablet PO DAILY [facility] Last Admin: 02/24/20 07:50 Dose: 2 tablet Documented by: Simethicone (Mylicon) 80 mg PO PCHS PRN PRN Reason: Indigestion/stomach pain Sodium Chloride () 5 - 15 ml IV UD PRN PRN Reason: SALINE FLUSH Last Admin: 02/24/20 05:44 Dose: 10 ml Documented by: Zolpidem Tartrate (Ambien (Generic)) 5 mg ORAL QHS PRN PRN PRN Reason: Insomnia Medical Necessity - Tobacco Use Smoking Status: Never smoker Assessment/Plan All Active Problems 39 weeks gestation of (Acute) Arrest of descent, delivered, current hospitalization (Acute) Delivery by section (Acute) This is a 24 year-old, G [1], P [1001] POD#1 s/p classical C/S. -Doing well overall -Significant anemia, not sx at present, repeat CBC this afternoon - transferred to [facility] [place] for cooling -Reviewed with Ayesha intraop findings and procedure including T incision, need for for future deliveries as well as delivery at approx 37 w. -Will consider for early discharge this evening pending labs and observation.
[2020-02-24] MEDS: Ibuprofen 600 MG Tablet PO ×2 (10:18→15:58)
[2020-02-24] MEDS: Heparin Injection (Vial) 5,000 UNIT/ML VIAL 5000 UNIT SC (11:04)
--- NOTE | 2020-02-24 11:55 | CASEMGMT ---
Social Work Telephone call to [facility], voicemail left requesting return phone call from infant social media senior associate to provide handoff. Aminata MALIK, JOHNNA
[2020-02-24 14:26] LABS: Hematocrit 22.8 % (37-47); Hemoglobin 7.5 g/dL (12.0-15.0); Mean Corp Hgb Conc 32.9 g/dL (32-36); Mean Corpuscular Hgb 27.9 pg (27.0-32.0); Mean Corpuscular Volume 84.8 fL (81-99); Mean Platelet Vol. 10.9 fl (6.2-12.0); Platelet Count 187 K/mm3 (150-450); RBC Distribution Width CV 14.5 % (11.6-14.6); RBC Distribution Width SD 44.4 fl (35.1-43.9); Red Blood Count 2.69 M/mm3 (4.2-5.4); White Blood Count 14.9 K/mm3 (4.4-11.0)
--- NOTE | 2020-02-24 15:13 | NURSING ---
Message left with Betsy mao in office to have Dr Cheung call when available.
--- NOTE | 2020-02-24 16:36 | DCINST_ITS ---
Discharge Diet: No Restrictions Discharge Activity: Return to Normal Activity, May not drive while taking narcotic pain medications., May Shower, - - No tub bath May resume sexual activity in: 6 weeks Lifting Restrictions: 5-10 lb Call your doctor if your incision/area has: Continuous Slow Oozing, Sudden Increased Bleeding, Increased Pain/ Swelling, Increased Redness Suture Line Care: Avoid Pulling/Pushing, Avoid Pinching/Bending Remove Dressing in (days):: 4 Cleanse incision/area with: Soap & Water Additional Instructions: If you experience any of the following, contact your healthcare provider. * Bleeding that soaks a pad every hour for 2 hours * Fever 100.4 or higher * Unrelieved incision or abdominal pain * Swelling, redness, discharge or bleeding from your incision or episiotomy site * Your incision begins to separate * Problems urinating (including inability to urinate or burning while urinating). * Visual changes * Severe headache * Flu-like symptoms * Pain or redness in one of both of your breasts * Pain, warmth, tenderness or swelling in your legs, especially the calf area * Frequent nausea and vomiting * Symptoms of depression or anxiety If you experience any of the following, call 911 or go to the nearest Emergency Room. * Chest pain * Problems breathing * Seizure activity * Partial or complete paralysis of a body part, slurred speech, weakness or drooping of the face, or a sudden inability to walk or hold your balance Allergies/Adverse Reactions: Allergies Penicillins Allergy (Verified 02/21/20 07:57) Rash Medications to take at Discharge Levothyroxine [Synthroid] 50 mcg PO DAILY 02/21/20 Ibuprofen [Motrin] 600 mg PO Q8H PRN #30 tab 02/24/20 Oxycodone [Oxyir] 1 - 2 tab PO Q4H PRN PRN 7 Days #28 tab 02/24/20 Senna/Docusate Sodium [Senokot-S] 1 - 2 tab PO DAILY #30 tab 02/24/20 The following prescriptions were given: Ibuprofen [Motrin] 600 mg PO Q8H PRN #30 tab PRN Reason: Pain Or Fever Transmission Status: Sent to [facility] Oxycodone [Oxyir] 1 - 2 tab PO Q4H PRN PRN 7 Days #28 tab PRN Reason: Pain Score 4-10/10 Transmission Status: Sent to [facility] Senna/Docusate Sodium [Senokot-S] 1 - 2 tab PO DAILY #30 tab Transmission Status: Sent to [facility] Follow-Up: Call to make an appointment with your doctor for an incision check in 1-2 weeks. You will also need a 6 week post- follow up appointment. Test results from this visit will be discussed in further detail at your follow- up appointment, if applicable. Please Follow Up With: Skye - Call to schedule an incision check When: 3-7 days Primary Care Physician: Care Physician,No Primary [Primary Care Provider] -
--- NOTE | 2020-02-25 11:50 | CASEMGMT ---
SOCIAL WORK Received call from Dali [employer] with [facility]. Handoff report provided regarding MOB's positive tox screen for THC in June 2019. Informed MOB was negative upon admission. Dali denies any further questions. Makayla Rosen, CONSERVATION OF RESOURCES COMMISSIONER, AGENCY SALES DEVELOPMENT ASSOCIATE
--- NOTE | 2020-03-02 08:28 | PCM.DC.SUM ---
Discharge Date and Diagnosis Date of Admission: 02/21/20 Date of Discharge: 02/24/20 Hospital Course and Treatment Summary of Care Provided: The patient is a 24 year old F 1 admitted at 39 weeks gestational age for scheduled elective induction of labor for macrosomia. She progressed to fully dilated and pushed for approximately 5 hours with protracted descent. She underwent a section at 39 2/7 weeks gestation for protracted second stage. The section was complicated by head impaction requiring T extension of incision. Her was transferred to [facility], thus the patient was discharged after approximately 30h observation. She was out of bed, voiding, tolerating PO and passing flatus prior to discharge. - Physical Exam Vitals/I&O's: Vital Signs Temp Pulse Resp BP Pulse Ox 97.7 F L 98 16 110/62 97 02/24/20 17:22 02/24/20 17:22 02/24/20 17:22 02/24/20 17:22 02/24/20 15:04 Oxygen Flow Rate (L/min) 2 Oxygen Delivery Method Room Air Weight: 120 kg Body Mass Index (BMI) 39.0 Discharge Diet: No Restrictions Discharge Activity: Return to Normal Activity, May not drive while taking narcotic pain medications., May Shower, - - No tub bath May resume sexual activity in: 6 weeks Call your doctor if your incision/area has: Continuous Slow Oozing, Sudden Increased Bleeding, Increased Pain/ Swelling, Increased Redness Suture Line Care: Avoid Pulling/Pushing, Avoid Pinching/Bending Remove Dressing in (days):: 4 Cleanse incision/area with: Soap & Water Home Medications: Medications to take at Discharge Levothyroxine [Synthroid] 50 mcg PO DAILY 02/21/20 Ibuprofen [Motrin] 600 mg PO Q8H PRN #30 tab 02/24/20 Senna/Docusate Sodium [Senokot-S] 1 - 2 tab PO DAILY #30 tab 02/24/20 Following Prescriptions Were Given to Patient: Ibuprofen [Motrin] 600 mg PO Q8H PRN #30 tab PRN Reason: Pain Or Fever Transmission Status: Received by [facility] Senna/Docusate Sodium [Senokot-S] 1 - 2 tab PO DAILY #30 tab Transmission Status: Received by [facility] Primary Care Physician: Care Physician,No Primary [Primary Care Provider] - Please Follow Up With: Skye - Call to schedule an incision check When: 3-7 days Medical Necessity - Tobacco Use Smoking Status: Never smoker Meaningful Use Info Meaningful Use Diagnoses (Choose all that apply): None applicable
== END 2020-02-24 17:20 | disposition home or self-care (01) | DRG 788 ==
PROVIDERS: Admitting Provider Obstetrics & Gynecology; Visit Provider Obstetrics & Gynecology
DX: O62.1 Secondary uterine inertia (principal); Z37.0 Single live birth; Z3A.39 39 weeks gestation of pregnancy; O36.63X0 Maternal care for excessive fetal growth, third trimester, not applicable or unspecified; O69.82X0 Labor and delivery complicated by other cord entanglement, without compression, not applicable or unspecified
CPT/HCPCS: 59025; 59050; 80307; 85025; 85027; 86850; 86900; 86901; 99218; J7120; A4216; G0378; J2405

== ENCOUNTER 2020-04-20 10:45 | Outpatient (RCR) | payer BC, SELFPAY ==
[2020-02-21 07:57] VITALS: BMI 39.0
[2020-03-30 08:17] VITALS: BP 120/81; PULSE 88; RESP 18; TEMP 37.1; BMI 34.0
--- NOTE | 2020-03-30 09:07 | PCM.WC.HP ---
(1) anemia Status: Chronic Current Visit: Yes Code(s): O90.81 - Anemia of the puerperium (2) complication Status: Chronic Current Visit: Yes Code(s): O90.89 - Other complications of the puerperium, not elsewhere classified (3) Wound dehiscence, Status: Chronic Current Visit: Yes Code(s): O90.0 - Disruption of delivery wound (4) Hypothyroidism Status: Chronic Current Visit: No Code(s): E03.9 - Hypothyroidism, unspecified (5) Obesity (BMI 30.0-34.9) Status: Chronic Current Visit: No Code(s): E66.9 - Obesity, unspecified (6) Wound dehiscence, surgical Status: Chronic Current Visit: Yes Qualifiers: Encounter type: initial encounter Qualified Code(s): T81.31XA - Disruption of external operation (surgical) wound, not elsewhere classified, initial encounter Code(s): T81.31XA - Disruption of external operation (surgical) wound, not elsewhere classified, initial encounter (7) Delivery by section Status: Chronic Current Visit: No History of Present Illness Date of Service: 03/30/20 Chief Complaint: Surgical wound dehiscence, status post section History of Wound: This is a 24-year-old female who underwent section on February 23, 2020. The section was required due to arrest of the fetus in the canal. The infant was 39 weeks gestation. This is the patient's first , being a Ab0. Due to birthing issues, the infant required an NICU care. Approximately 10 days , the patient noted some leakage from the lower portion of her vertical lower abdominal section incision. The drainage has persisted until the current time. It is described as clear. It appears to be generally serous in nature, and not purulent in appearance. Patient is currently on her second course of oral Keflex, as prescribed by her HEAD OF CONSERVATION. She has been using peroxide topically to treat the dehiscent portion of the incision. It is noted that laboratory results obtained on the day following her delivery indicated a white blood count of 14.9, hemoglobin of 7.5, hematocrit of 22.8, and platelets of 187,000. Patient indicates that she lost a lot of blood during her delivery. She was referred to our facility for management of the dehiscence at the inferior pole of her lower abdominal vertical incision. The patient indicates that her is doing well. Past Medical History Past Medical History: Chronic Problems (Last Updated 02/21/20 @ 10:[address] Shaista Daniels MD) Delivery by section (Chronic) anemia (Chronic) complication (Chronic) Wound dehiscence, (Chronic) Hypothyroidism (Chronic) Obesity (BMI 30.0-34.9) (Chronic) Wound dehiscence, surgical (Chronic) Past Medical History: The patient suffers from hypothyroidism. Her history is otherwise negative for myocardial infarction, congestive heart failure, cerebrovascular accident, hypertension, diabetes mellitus, renal disease, pulmonary disease, and hyperlipidemia. Surgical History: no surgical history - Patient's surgical history is negative, but for her recent section. She is a G1, P1 Ab0. Allergies/Adverse Reactions: Allergies Penicillins Allergy (Verified 03/30/20 08:35) Rash Home Medications: Ambulatory Orders Medication Instructions Recorded Levothyroxine [Synthroid] 50 mcg PO DAILY 02/21/20 Ibuprofen [Motrin] 600 mg PO Q8H PRN #30 tab 02/24/20 Senna/Docusate Sodium [Senokot-S] 1 - 2 tab PO DAILY #30 tab 02/24/20 - Family History Paternal - - The patient's father is , from throat cancer. Other details are unknown, as the patient is estranged from her biological father. The patient's mother is living, age 55, and healthy. Social History: Patient lives with her boyfriend. She is not . She denies use of tobacco products. She consumes alcoholic beverages occasionally. 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 Lives: - - Boyfriend Smoking Status: Never smoker Tobacco Use: Non-smoker Alcohol: Occasional Drugs: None Review of Systems Constitutional: Denies: Chills, Fever, Weight Change Eyes: Denies: Pain, Vision Change HEENT: Denies: Difficulty Hearing, Difficulty Swallowing, Sinus Congestion Cardiovascular: Denies: Chest Pain, Palpitations Respiratory: Denies: Cough, Shortness of Breath Gastrointestinal: Denies: Diarrhea, Nausea, Vomiting Genitourinary: Denies: Dysuria, Hematuria Endocrine: Denies: Heat/ Cold Intolerance, Polydipsia, Polyuria Hematologic/ Lymphatic: Denies: Easy Bruising, Easy Bleeding - Physical Exam Vital Signs Temp Pulse Resp BP 98.8 F 88 18 120/81 H 03/30/20 08:17 03/30/20 08:17 03/30/20 08:17 03/30/20 08:17 General: Alert, Oriented x3, Cooperative, No apparent distress, Well developed, Well nourished, - - The patient is mildly obese HEENT: Atraumatic, PERRLA, EOMI, Normocephalic Oral: Moist Mucosa Neck: Supple, No JVD, Negative Carotid Bruits, No Nuchal Rigidity, Trachea Midline Lungs: Clear to auscultation, Normal air movement, No rhonchi, No wheeze, No rales Cardiovascular: Regular rate, Regular Rhythm, Normal S1, Normal S2, No murmurs Abdomen: Soft, Non Tender, Non-Distended, Obese, - - A vertical midline incision is noted in the lower abdomen. Most of the incision is well approximated and healing well. At the lower pole, there are 2 very small openings, approximately 1 cm apart. Probing reveals that they do not appear to communicate. They are of minimal depth. They do not appear to extend deep, likely not close to fascial level. There is no sign of infection or cellulitis. There is no odor. There is no erythema. It is noted, however, that the small dehiscent openings are within the intertriginous zone. Because the patient is mildly obese, the dehiscent openings lie within the skin folds in this area. Wound dimensions are documented elsewhere. Extremities: No clubbing, No cyanosis, No edema, No Calf Tenderness Skin: No rashes Wound Measurements and Assessment WC - Nurse 1 - General Ulcer Measurement Start: 03/30/20 08:15 Freq: Status: Active Protocol: Activity Type Activity Date Activity User E-Sign Co-Sign Detail Recorded Client Recorded Date Recorded By Document 03/30/20 08:17 DL [id number] 03/30/20 08:31 DL 03/30/20 08:17 Wound Center Nurse 1 [Ulcer Assessment] #1 Abd -Current Size (cm) - Length 1.7 -Current Size (cm) - Width 0.8 -Current Size (cm) - Depth 0.7 -Total Square Cm 1.36 -Photo Taken Yes -Classification - Thickness Full Thickness without Exposed Support Structure -Exudate Amt Small -Exudate Type Serosanguineous -Wound Margin Distinct, Outline Attached -Granulation Amt Small (1-33%) -Granulation Quality [place] -Necrosis Amt Small (1-33%) -Necrotic Tissue Type Adherent Slough -Structure Exposed N/A -Texture (Hillary-wound Skin Appearance) Scarring -Moisture (Hillary-wound Skin Appearance No Abnormality ) -Color (Hillary-wound Skin Appearance) Erythema,Rubor -Temperature (Hillary-wound Skin No Abnormality Appearance) (Pt Warm) -Tenderness on Palpation (Hillary-wound No Skin Appearance) -Ulcer Cleansing Wound Cleanser -Foul Odor after Cleansing No -Anesthetic Used 4% Lidocaine Solution - Nurse 2 - General Ulcer CM Notes Start: 03/30/20 08:15 Freq: Status: Active Protocol: Activity Type Activity Date Activity User E-Sign Co-Sign Detail Recorded Client Recorded Date Recorded By Document 03/30/20 08:56 PL [id number] 03/30/20 08:58 PL 03/30/20 08:56 Wound Center Nurse 2 [Procedure/Treatment] -Procedure Performed No -Wound/Ulcer Outcome Not Healed -Bioengineered Tissue No [See Physician Procedure note for Specifics] Pain Scale: 0-10 Numeric [Pain] -Is Patient Pain Free? Yes Musculoskeletal: No Muscle Wasting Neurological: Cranial nerves II-XII grossly intact, Neuro grossly intact Psych/Mental Status: Normal Affect, Appropriate, Alert and oriented to time, place, person, mood and affect Debridement Note Post-Debridement Measurements/Treatment - Nurse 2 - General Ulcer Notes Start: 03/30/20 08:15 Freq: Status: Active Protocol: Activity Type Activity Date Activity User E-Sign Co-Sign Detail Recorded Client Recorded Date Recorded By Document 03/30/20 08:56 PL [id number] 03/30/20 08:58 PL 03/30/20 08:56 Wound Center Nurse 2 #1 Abd -Procedure Performed No -Wound/Ulcer Outcome Not Healed -Bioengineered Tissue No Pain Scale: 0-10 Numeric Is Patient Pain Free? Yes No debridement was completed today Assessment/Plan Active Problems (Last Updated 02/21/20 @ 10:[address] Shaista Daniels MD) anemia (Chronic) complication (Chronic) Wound dehiscence, (Chronic) Wound dehiscence, surgical (Chronic) Assessment: This is a 24-year-old female who is approximately 5 weeks . Her first child was delivered by means of a section via a low abdominal vertical midline incision. She has developed 2 small dehiscent areas in the lower portion of her incision, located within the intertriginous folds of her lower abdomen. The 2 dehiscence sites are small in dimension, and a very limited depth. Patient is otherwise generally healthy, but for hypothyroidism and mild obesity. She is not a smoker. Plan: We are to implement the use of quarter inch iodoform gauze packing to the 2 small dehiscent sites on the inferior portion of the patient's surgical incision. The patient is to be instructed in the appropriate means of packing. She is to be assisted on a daily basis by her boyfriend, with whom she lives. She has been instructed to continue with her current prescription for Keflex, which is the second course as prescribed by her HEAD OF CONSERVATION physician. Patient is to follow-up in 1 week for reevaluation. It is noted that her immediate labs indicated an elevated white blood count, and a significant anemia. Therefore, we are to obtain routine laboratory studies, including a CBC, comprehensive metabolic profile, and a serum prealbumin. Patient has been advised to assure a nutritious diet. She has been advised to keep the involved area as clean and dry as possible, given that it is an an intertriginous zone. She is to return in 1 week for reassessment. The patient weighs 230 pounds. She stands 5 feet 9 inches tall. Her BMI is 34.0, which places her in a class I obesity category. Weight loss has been discussed and recommended. She is not a smoker. Influenza vaccine was not administered today.
[2020-03-30 12:46] LABS: Absolute Lymphocyte Count 1.91 X10^3/uL (0.83-4.51); Absolute Neutrophil Count 4.2 X10^3/uL (2.0-7.7); Basophil# 0.03 X10^3/uL; Basophil% 0.4 % (0-1); Eosinophil# 0.23 X10^3/uL; Eosinophils% 3.3 % (0-5); Hematocrit 36.2 % (37-47); Hemoglobin 10.8 g/dL (12.0-15.0); Lymphocyte # 1.91 X10^3/ul (4.0); Lymphocyte % 27.7 % (19-41); Mean Corp Hgb Conc 29.8 g/dL (32-36); Mean Corpuscular Hgb 24.6 pg (27.0-32.0); Mean Corpuscular Volume 82.5 fL (81-99); Mean Platelet Vol. 9.8 fl (6.2-12.0); Monocyte# 0.48 X10^3/uL; NRBC Flagged by Analyzer 0 % (0-5); Neutrophil # 4.22 X10^3/uL (2.7-7.7); Neutrophil % 61.2 % (47-70); Platelet Count 343 K/mm3 (150-450); RBC Distribution Width CV 14.8 % (11.6-14.6); RBC Distribution Width SD 45.1 fl (35.1-43.9); Red Blood Count 4.39 M/mm3 (4.2-5.4); White Blood Count 6.9 K/mm3 (4.4-11.0)
[2020-03-30 13:37] LABS: T3 Total - Triiodothyronine 1.19 ng/mL (0.6-1.81)
[2020-03-30 13:42] LABS: ALB/GLOB Ratio 0.8 RATIO (0.9-2.4); AST(SGOT) 27 U/L (15-37); Alanine Aminotransfer ALT/SGPT 44 U/L (13-56); Albumin, Serum 3.6 g/dL (3.2-5.0); Alkaline Phosphatase 85 U/L (45-117); Anion Gap 4 (5-15); BUN 14 mg/dL (7-18); BUN/Creat Ratio 20.2 RATIO (10-20); Calcium,Total 9.1 mg/dL (8.5-10.1); Chloride 107 mmol/L (98-107); Creatinine, Serum 0.69 mg/dL (0.55-1.02); EST Glomerular Filtration Rate 109 mL/min (>60); Est Glom Filt Rate - Afr Amer 132 mL/min (>60); Estimated Creatinine Clearance 130.25 ml/min; Free T3 2.7 pg/mL (2.18-3.98); Globulin 4.4 g/dL (2.2-4.2); Glucose 90 mg/dL (74-106); Prealbumin 29.6 mg/dL (20.0-40.0); Sodium Level 139 mmol/L (136-145); Thyroid Stim Hormone (TSH) 3.96 uIU/mL (0.358-3.74)
[2020-04-01 17:31] LABS: Ferritin 17 ng/mL (8-252)
[2020-04-06 11:32] VITALS: BP 129/81; PULSE 85; RESP 16; TEMP 37.3; BMI 34.0
--- NOTE | 2020-04-06 12:18 | HP.PCM_ITS ---
(1) anemia Status: Chronic Current Visit: Yes Code(s): O90.81 - Anemia of the puerpe rium (2) complication Status: Chronic Current Visit: Yes Code(s): O90.89 - Other complications of the puerperium, not elsewhere classified (3) Wound dehiscence, Status: Chronic Current Visit: Yes Code(s): O90.0 - Disruption of delivery wound (4) Hypothyroidism Status: Chronic Current Visit: No Code(s): E03.9 - Hypothyroidism, unspecified (5) Obesity (BMI 30.0-34.9) Status: Chronic Current Visit: No Code(s): E66.9 - Obesity, unspecified (6) Wound dehiscence, surgical Status: Chronic Current Visit: Yes Qualifiers: Encounter type: initial encounter Qualified Code(s): T81.31XA - Disruption of external operation (surgical) wound, not elsewhere classified, initial encounter Code(s): T81.31XA - Disruption of external operation (surgical) wound, not elsewhere classified, initial encounter (7) Delivery by section Status: Chronic Current Visit: No History of Present Illness Date of Service: 04/06/20 Chief Complaint: Surgical wound dehiscence, status post section History of Wound: This is a 24-year-old female who underwent section on February 23, 2020. The section was required due to arrest of the fetus in the canal. The was 39 weeks gestation. This is the patient's first , being a Ab0. Due to birthing issues, the required an NICU care. Approximately 10 days , the patient noted some leakage from the lower portion of her vertical lower abdominal section incision. The drainage has persisted until the current time. It is described as clear. It appears to be generally serous in nature, and not purulent in appearance. Patient is currently on her second course of oral Keflex, as prescribed by her NEEDLE BAR MOLDER. She has been using peroxide topically to treat the dehiscent portion of the incision. It is noted that laboratory results obtained on the day following her delivery indicated a white blood count of 14.9, hemoglobin of 7.5, hematocrit of 22.8, and platelets of 187,000. Patient indicates that she lost a lot of blood during her delivery. She was referred to our facility for management of the dehiscence at the inferior pole of her lower abdominal vertical incision. The patient indicates that her is doing well. Past Medical History Past Medical History: Chronic Problems (Last Updated 02/21/20 @ 10:[address] Shaista Daniels MD) Delivery by section (Chronic) anemia (Chronic) complication (Chronic) Wound dehiscence, (Chronic) Hypothyroidism (Chronic) Obesity (BMI 30.0-34.9) (Chronic) Wound dehiscence, surgical (Chronic) Surgical History: no surgical history - Patient's surgical history is negative, but for her recent section. She is a G1, P1 Ab0. Allergies/Adverse Reactions: Allergies Penicillins Allergy (Verified 03/30/20 08:35) Rash Home Medications: Ambulatory Orders Medication Instructions Recorded Levothyroxine [Synthroid] 50 mcg PO DAILY 02/21/20 Ibuprofen [Motrin] 600 mg PO Q8H PRN #30 tab 02/24/20 Senna/Docusate Sodium [Senokot-S] 1 - 2 tab PO DAILY #30 tab 02/24/20 - Family History Paternal - - The patient's father is , from throat cancer. Other details are unknown, as the patient is estranged from her biological father. The patient's mother is living, age 55, and healthy. Lives: - - Boyfriend Smoking Status: Never smoker Tobacco Use: Non-smoker Alcohol: Occasional Drugs: None Review of Systems Constitutional: Denies: Chills, Fever, Weight Change Eyes: Denies: Pain, Vision Change HEENT: Denies: Difficulty Hearing, Difficulty Swallowing, Sinus Congestion Cardiovascular: Denies: Chest Pain, Palpitations Respiratory: Denies: Cough, Shortness of Breath Gastrointestinal: Denies: Diarrhea, Nausea, Vomiting Genitourinary: Denies: Dysuria, Hematuria Endocrine: Denies: Heat/ Cold Intolerance, Polydipsia, Polyuria Hematologic/ Lymphatic: Denies: Easy Bruising, Easy Bleeding - Physical Exam Vital Signs Temp Pulse Resp BP 99.2 F H 85 16 129/81 H 04/06/20 11:32 04/06/20 11:32 04/06/20 11:32 04/06/20 11:32 General: Alert, Oriented x3, Cooperative, No apparent distress, Well developed, Well nourished HEENT: Atraumatic, PERRLA, EOMI, Normocephalic Oral: Moist Mucosa Neck: No JVD Lungs: Normal air movement Abdomen: Soft, Non Tender, Non-Distended, Obese, - - The preponderance of the vertical midline incision in the lower abdomen remains well approximated and healing appropriately. Inferiorly, the 2 small dehiscent areas persist. The superior dehiscence is very small, and now too small to admit even a strip of quarter inch iodoform gauze. This small dehiscent site is approximately 3 to 4 mm in depth. The inferior dehiscent area, slightly larger, is approximately 14 mm in depth. It appears large enough to admit a strip of quarter inch iodoform gauze. There is no sign of infection or cellulitis. Dimensions are documented elsewhere. There is a small amount of bioburden. Extremities: No clubbing, No cyanosis, No edema, No Calf Tenderness Skin: No rashes Wound Measurements and Assessment WC - Nurse 1 - General Ulcer Measurement Start: 03/30/20 08:15 Freq: Status: Active Protocol: Activity Type Activity Date Activity User E-Sign Co-Sign Detail Recorded Client Recorded Date Recorded By Document 04/06/20 11:32 [facility] [id number] 04/06/20 11:42 [facility] 04/06/20 11:32 Wound Center Nurse 1 [Ulcer Assessment] #1 Abd -Combined with other wound No -Current Size (cm) - Length 1.4 -Current Size (cm) - Width 0.3 -Current Size (cm) - Depth 0.6 -Total Square Cm 0.42 -Photo Taken No -Epithelialization None Present -Tunneling No -Undermining/Tunneling No -Circular Undermining No -Exudate Amt Large -Exudate Type Serous -Wound Margin Distinct, Outline Attached -Granulation Amt Large (67-100%) -Granulation Quality Red -Slough/Fibrin No -Necrosis Amt None Present (0 %) -Texture (Hillary-wound Skin Appearance) Assessed, Scarring -Moisture (Hillary-wound Skin Appearance Assessed ) -Color (Hillary-wound Skin Appearance) Assessed -Temperature (Hillary-wound Skin No Abnormality Appearance) (Pt Warm) -Tenderness on Palpation (Hillary-wound No Skin Appearance) -Ulcer Cleansing Rinsed/ Irrigated with Saline -Foul Odor after Cleansing No -Anesthetic Used 5% Lidocaine Gel Musculoskeletal: No Muscle Wasting Neurological: Cranial nerves II-XII grossly intact, Neuro grossly intact Psych/Mental Status: Normal Affect, Appropriate, Alert and oriented to time, place, person, mood and affect Debridement Note Post-Debridement Measurements/Treatment - Nurse 2 - General Ulcer CM Notes Start: 03/30/20 08:15 Freq: Status: Active Protocol: Activity Type Activity Date Activity User E-Sign Co-Sign Detail Recorded Client Recorded Date Recorded By Document 03/30/20 08:56 [id number] 03/30/20 08:58 PL 03/30/20 08:56 Wound Center Nurse 2 #1 Abd -Procedure Performed No -Wound/Ulcer Outcome Not Healed -Bioengineered Tissue No Pain Scale: 0-10 Numeric Is Patient Pain Free? Yes - Nurse 3 - General Ulcer D/C NN Start: 03/30/20 08:15 Freq: Status: Active Protocol: Activity Type Activity Date Activity User E-Sign Co-Sign Detail Recorded Client Recorded Date Recorded By Document 03/30/20 09:17 [facility] [id number] 03/30/20 09:19 [facility] 03/30/20 09:17 Wound Care Nurse 3 #1 Abd -Ulcer Cleansing Rinsed/ Irrigated with Saline -Foul Odor after Cleansing No -Primary Dressing Applied Nugauze, Iodoform -Primary Dressing Covered/Secured with Secured with Tape,Other -Other Covering abd -Nugauze, Iodoform 1/4 1 Treatment Response Procedure Tolerated Well Pain Scale: 0-10 Numeric Is Patient Pain Free? Yes WC - Visit Discharge Discharge Condition Stable Ambulatory Status Ambulatory Transportation Private Auto Laterality: Not Applicable - Midline vertical lower abdominal incision?dehiscence Type of Debridement: Excisional debridement Anesthesia Used: 5% Lidocaine Gel Depth: Down to and including healthy tissue, in the subcutaneous layer Percentage of wound debrided: 100 Instrument Used: - - 1 mm curette Tissue Removed: Bioburden Severity: Fat Layer Exposed Amount of bleeding with debridement: Mild Bleeding Controlled with: Compression and gauze Patient tolerated procedure well Assessment/Plan Active Problems (Last Updated 02/21/20 @ 10:[address] Shaista Daniels MD) anemia (Chronic) complication (Chronic) Wound dehiscence, (Chronic) Wound dehiscence, surgical (Chronic) Assessment: This is a 24-year-old female who is approximately 6 weeks . Her first child was delivered by means of a section via a low abdominal vertical midline incision. She has developed 2 small dehiscent areas in the lower portion of her incision, located within the intertriginous folds of her lower abdomen. The 2 dehiscence sites are small in dimension, and of very limited depth. Patient is otherwise generally healthy, but for hypothyroidism and mild obesity. She is not a smoker. Plan: We are to implement the use of quarter inch iodoform gauze packing to the 2 small dehiscent sites on the inferior portion of the patient's surgical incision. The more superior of the 2 dehiscence sites is now too small to admit gauze packing. Therefore, we will simply cover with gauze, and anticipate healing by secondary intention. The patient has been instructed in the appropriate means of packing of the lower site. She is to be assisted on a kendell ly basis by her boyfriend, with whom she lives. She has completed her prescription for Keflex, which is the second course as prescribed by her NEEDLE BAR MOLDER physician. Patient is to follow-up in 1 week for reevaluation. It is noted that her immediate labs indicated an elevated white blood count, and a significant anemia. Labs have been repeated, with results as follows: White blood count 6.9, hemoglobin 10.8, hematocrit 36.2, platelets 343,000, glucose 90, BUN 14, creatinine 0.69, total protein 8.0, albumin 3.6, calcium 9.1, AST 27, alkaline phosphatase 85, ALT 44, sodium 139, potassium 4.0, chloride 107. Patient has been advised to assure a nutritious diet. She has been advised to keep the involved area as clean and dry as possible, given that it is an an intertriginous zone. She is to return in 1 week for reassessment. The patient weighs 230 pounds. She stands 5 feet 9 inches tall. Her BMI is 34.0, which places her in a class I obesity category. Weight loss has been discussed and recommended. She is not a smoker. Influenza vaccine was not administered today.
[2020-04-13 09:01] VITALS: BP 120/72; PULSE 75; RESP 20; TEMP 36.6; BMI 34.0
--- NOTE | 2020-04-13 09:14 | HP.PCM_ITS ---
(1) anemia Status: Chronic Current Visit: Yes Code(s): O90.81 - Anemia of the puerpe rium (2) complication Status: Chronic Current Visit: Yes Code(s): O90.89 - Other complications of the puerperium, not elsewhere classified (3) Wound dehiscence, Status: Chronic Current Visit: Yes Code(s): O90.0 - Disruption of delivery wound (4) Hypothyroidism Status: Chronic Current Visit: No Code(s): E03.9 - Hypothyroidism, unspecified (5) Obesity (BMI 30.0-34.9) Status: Chronic Current Visit: No Code(s): E66.9 - Obesity, unspecified (6) Wound dehiscence, surgical Status: Chronic Current Visit: Yes Qualifiers: Encounter type: initial encounter Qualified Code(s): T81.31XA - Disruption of external operation (surgical) wound, not elsewhere classified, initial encounter Code(s): T81.31XA - Disruption of external operation (surgical) wound, not elsewhere classified, initial encounter (7) Delivery by section Status: Chronic Current Visit: No History of Present Illness Date of Service: 04/13/20 Chief Complaint: Surgical wound dehiscence, status post section History of Wound: This is a 24-year-old female who underwent section on February 23, 2020. The section was required due to arrest of the fetus in the canal. The was 39 weeks gestation. This is the patient's first , being a Ab0. Due to birthing issues, the required an NICU care. Approximately 10 days , the patient noted some leakage from the lower portion of her vertical lower abdominal section incision. The drainage has persisted until the current time. It is described as clear. It appears to be generally serous in nature, and not purulent in appearance. Patient is currently on her second course of oral Keflex, as prescribed by her CATHODIC PROTECTION TECHNICIAN. She has been using peroxide topically to treat the dehiscent portion of the incision. It is noted that laboratory results obtained on the day following her delivery indicated a white blood count of 14.9, hemoglobin of 7.5, hematocrit of 22.8, and platelets of 187,000. Patient indicates that she lost a lot of blood during her delivery. She was referred to our facility for management of the dehiscence at the inferior pole of her lower abdominal vertical incision. The patient indicates that her is doing well. Past Medical History Past Medical History: Chronic Problems (Last Updated 02/21/20 @ 10:[address] Shaista Daniels MD) Delivery by section (Chronic) anemia (Chronic) complication (Chronic) Wound dehiscence, (Chronic) Hypothyroidism (Chronic) Obesity (BMI 30.0-34.9) (Chronic) Wound dehiscence, surgical (Chronic) Surgical History: no surgical history - Patient's surgical history is negative, but for her recent section. She is a G1, P1 Ab0. Allergies/Adverse Reactions: Allergies Penicillins Allergy (Verified 03/30/20 08:35) Rash Home Medications: Ambulatory Orders Medication Instructions Recorded Levothyroxine [Synthroid] 50 mcg PO DAILY 02/21/20 Ibuprofen [Motrin] 600 mg PO Q8H PRN #30 tab 02/24/20 Senna/Docusate Sodium [Senokot-S] 1 - 2 tab PO DAILY #30 tab 02/24/20 - Family History Paternal - - The patient's father is , from throat cancer. Other details are unknown, as the patient is estranged from her biological father. The patient's mother is living, age 55, and healthy. Lives: - - Boyfriend Smoking Status: Never smoker Tobacco Use: Non-smoker Alcohol: Occasional Drugs: None Review of Systems Constitutional: Denies: Chills, Fever, Weight Change Eyes: Denies: Pain, Vision Change HEENT: Denies: Difficulty Hearing, Difficulty Swallowing, Sinus Congestion Cardiovascular: Denies: Chest Pain, Palpitations Respiratory: Denies: Cough, Shortness of Breath Gastrointestinal: Denies: Diarrhea, Nausea, Vomiting Genitourinary: Denies: Dysuria, Hematuria Endocrine: Denies: Heat/ Cold Intolerance, Polydipsia, Polyuria Hematologic/ Lymphatic: Denies: Easy Bruising, Easy Bleeding - Physical Exam Vital Signs Temp Pulse Resp BP 98 F 75 20 H 120/72 04/13/20 09:01 04/13/20 09:01 04/13/20 09:01 04/13/20 09:01 General: Alert, Oriented x3, Cooperative, No apparent distress, Well developed, Well nourished HEENT: Atraumatic, PERRLA, EOMI, Normocephalic Oral: Moist Mucosa Neck: No JVD Lungs: Normal air movement Abdomen: Soft, Non Tender, Non-Distended, Obese, - - The patient's lower abdominal vertical midline incision is generally well-healed. There have been 2 small punctate dehiscence sites. The upper of the 2 dehiscences appears to be completely healed and epithelialized. The lower dehiscent site remains. It is approximately 1 cm in depth. There is a 2 mm opening. There is no sign of infection or cellulitis. There appears to be a small amount of bioburden. Extremities: No clubbing, No cyanosis, No edema, No Calf Tenderness Wound Measurements and Assessment WC - Nurse 1 - General Ulcer Measurement Start: 03/30/20 08:15 Freq: Status: Active Protocol: Activity Type Activity Date Activity User E-Sign Co-Sign Detail Recorded Client Recorded Date Recorded By Document 04/13/20 09:01 KEVON [id number] 04/13/20 09:06 DL 04/13/20 09:01 Wound Center Nurse 1 [Ulcer Assessment] #1 Abd -Current Size (cm) - Length 0.2 -Current Size (cm) - Width 0.3 -Current Size (cm) - Depth 0.6 -Total Square Cm 0.06 -Photo Taken No -Maximum Distance #2 (cm) 0.2 -Circular Undermining Yes -Exudate Amt Small -Exudate Type Serosanguineous -Wound Margin Distinct, Outline Attached -Granulation Amt Small (1-33%) -Granulation Quality Red -Necrosis Amt None Present (0 %) -Structure Exposed N/A -Texture (Hillary-wound Skin Appearance) Scarring -Moisture (Hillary-wound Skin Appearance No Abnormality ) -Color (Hillary-wound Skin Appearance) No Abnormality -Temperature (Hillary-wound Skin No Abnormality Appearance) (Pt Warm) -Tenderness on Palpation (Hillary-wound No Skin Appearance) -Ulcer Cleansing Rinsed/ Irrigated with Saline -Foul Odor after Cleansing No -Anesthetic Used 5% Lidocaine Gel Musculoskeletal: No Muscle Wasting Neurological: Cranial nerves II-XII grossly intact, Neuro grossly intact Psych/Mental Status: Normal Affect, Appropriate, Alert and oriented to time, place, person, mood and affect Debridement Note Post-Debridement Measurements/Treatment WC - Nurse 2 - General Ulcer CM Notes Start: 03/30/20 08:15 Freq: Status: Active Protocol: Activity Type Activity Date Activity User E-Sign Co-Sign Detail Recorded Client Recorded Date Recorded By Document 03/30/20 08:56 [id number] 03/30/20 08:58 Document 04/06/20 12:53 PL [id number] 04/06/20 12:54 PL 03/30/20 04/06/20 08:56 12:53 Wound Center Nurse 2 #1 Abd -Time 11:59 -Correct Patient Yes -Correct Side, Site, Position Yes -Correct Procedure Yes -Procedure Performed No Yes -Type of Procedure Debridement -Clinical Debridement Subcutaneous -Tissue Removed Subcutaneous -Post Debridement (cm) - Length 1.4 -Post Debridement (cm) - Width 0.3 -Post Debridement (cm) - Depth 0.6 -Total Square (Post) (cm) 0.42 -Area of Debridement (cm) - Length 1.4 -Area of Debridement (cm) - Width 0.3 -Total Square (Area) (cm) 0.42 -Tunneling No -Undermining/Tunneling No -Circular Undermining No -Wound/Ulcer Outcome Not Healed Not Healed -Bioengineered Tissue No No -Debridement - Subq, 1st 20sq cm Yes Pain Scale: 0-10 Numeric Is Patient Pain Free? Yes Yes - Nurse 3 - General Ulcer D/C NN Start: 03/30/20 08:15 Freq: Status: Active Protocol: Activity Type Activity Date Activity User E-Sign Co-Sign Detail Recorded Client Recorded Date Recorded By Document 03/30/20 09:17 [facility] [id number] 03/30/20 09:19 [facility] Document 04/06/20 12:53 PL [id number] 04/06/20 12:54 PL 03/30/20 04/06/20 09:17 12:53 Wound Care Nurse 3 #1 Abd -Ulcer Cleansing Rinsed/ Irrigated with Saline -Foul Odor after Cleansing No -Primary Dressing Applied Nugauze, Iodoform -Other Dressing Iodoform -Primary Dressing Covered/Secured with Secured with Dry Gauze, Tape,Other Secured with Tape -Other Covering abd -Nugauze, Iodoform 1/4 1 Treatment Response Procedure Tolerated Well Pain Scale: 0-10 Numeric Is Patient Pain Free? Yes Yes - Visit Discharge Discharge Condition Stable Stable Ambulatory Status Ambulatory Ambulatory Transportation Private Auto Clinical Summary of Care Provided Yes Laterality: Not Applicable - Vertical midline incisional dehiscence Type of Debridement: Excisional debridement Anesthesia Used: 5% Lidocaine Gel Depth: Down to and including healthy tissue, in the subcutaneous layer Percentage of wound debrided: 100 Instrument Used: 3mm curette Tissue Removed: Bioburden Severity: Fat Layer Exposed Amount of bleeding with debridement: Mild Bleeding Controlled with: Compression and gauze Patient tolerated procedure well Assessment/Plan Active Problems (Last Updated 02/21/20 @ 10:[address] Shaista Daniels MD) anemia (Chronic) complication (Chronic) Wound dehiscence, (Chronic) Wound dehiscence, surgical (Chronic) Assessment: This is a 24-year-old female who is approximately 7 weeks . Her first child was delivered by means of a section via a low abdominal vertical midline incision. She developed 2 small dehiscent areas in the lower portion of her incision, located within the intertriginous folds of her lower abdomen. The 2 dehiscence sites are small in dimension, and of very limited depth. The more superior of the 2 dehiscence sites appears to have totally healed. Patient is otherwise generally healthy, but for hypothyroidism and mild obesity. She is not a smoker. Plan: We are to continue the use of quarter inch iodoform gauze packing to the remaining small dehiscent site on the inferior portion of the patient's surgical incision. The more superior of the 2 dehiscence sites is now completely healed and epithelialized. The patient has been instructed in the appropriate means of packing of the lower site. She is to be assisted on a daily basis by her boyfriend, with whom she lives. She has completed her prescription for Keflex, which is the second course as prescribed by her CATHODIC PROTECTION TECHNICIAN physician. Patient is to follow-up in 1 week for reevaluation. It is noted that her immediate labs indicated an elevated white blood count, and a significant anemia. Labs have been repeated, with results as follows: White blood count 6.9, hemoglobin 10.8, hematocrit 36.2, platelets 343,000, glucose 90, BUN 14, creatinine 0.69, total protein 8.0, albumin 3.6, calcium 9.1, AST 27, alkaline phosphatase 85, ALT 44, sodium 139, potassium 4.0, chloride 107. Patient has been advised to assure a nutritious diet. She has been advised to keep the involved area as clean and dry as possible, given that it is in an intertriginous zone. She is to return in 1 week for reassessment. The patient weighs 230 pounds. She stands 5 feet 9 inches tall. Her BMI is 34.0, which places her in a class I obesity category. Weight loss has been discussed and recommended. She is not a smoker. Influenza vaccine was not administered today.
[2020-04-20 10:42] VITALS: BP 123/62; PULSE 71; RESP 16; TEMP 37; BMI 34.0
--- NOTE | 2020-04-20 11:19 | HP.PCM_ITS ---
(1) anemia Status: Chronic Current Visit: Yes Code(s): O90.81 - Anemia of the puerpe rium (2) complication Status: Chronic Current Visit: Yes Code(s): O90.89 - Other complications of the puerperium, not elsewhere classified (3) Wound dehiscence, Status: Chronic Current Visit: Yes Code(s): O90.0 - Disruption of delivery wound (4) Hypothyroidism Status: Chronic Current Visit: No Code(s): E03.9 - Hypothyroidism, unspecified (5) Obesity (BMI 30.0-34.9) Status: Chronic Current Visit: No Code(s): E66.9 - Obesity, unspecified (6) Wound dehiscence, surgical Status: Chronic Current Visit: Yes Qualifiers: Encounter type: initial encounter Qualified Code(s): T81.31XA - Disruption of external operation (surgical) wound, not elsewhere classified, initial encounter Code(s): T81.31XA - Disruption of external operation (surgical) wound, not elsewhere classified, initial encounter (7) Delivery by section Status: Chronic Current Visit: No History of Present Illness Date of Service: 04/20/20 Chief Complaint: Surgical wound dehiscence, status post section History of Wound: This is a 24-year-old female who underwent section on February 23, 2020. The section was required due to arrest of the fetus in the canal. The was 39 weeks gestation. This is the patient's first , being a Ab0. Due to birthing issues, the required an NICU care. Approximately 10 days , the patient noted some leakage from the lower portion of her vertical lower abdominal section incision. The drainage has persisted until the current time. It is described as clear. It appears to be generally serous in nature, and not purulent in appearance. Patient is currently on her second course of oral Keflex, as prescribed by her TECHNICIAN TERMINAL AND REPEATER. She has been using peroxide topically to treat the dehiscent portion of the incision. It is noted that laboratory results obtained on the day following her delivery indicated a white blood count of 14.9, hemoglobin of 7.5, hematocrit of 22.8, and platelets of 187,000. Patient indicates that she lost a lot of blood during her delivery. She was referred to our facility for management of the dehiscence at the inferior pole of her lower abdominal vertical incision. The patient indicates that her is doing well. Past Medical History Past Medical History: Chronic Problems (Last Updated 02/21/20 @ 10:[address] Shaista Daniels MD) Delivery by section (Chronic) anemia (Chronic) complication (Chronic) Wound dehiscence, (Chronic) Hypothyroidism (Chronic) Obesity (BMI 30.0-34.9) (Chronic) Wound dehiscence, surgical (Chronic) Surgical History: no surgical history - Patient's surgical history is negative, but for her recent section. She is a G1, P1 Ab0. Allergies/Adverse Reactions: Allergies Penicillins Allergy (Verified 03/30/20 08:35) Rash Home Medications: Ambulatory Orders Medication Instructions Recorded Levothyroxine [Synthroid] 50 mcg PO DAILY 02/21/20 Ibuprofen [Motrin] 600 mg PO Q8H PRN #30 tab 02/24/20 Senna/Docusate Sodium [Senokot-S] 1 - 2 tab PO DAILY #30 tab 02/24/20 - Family History Paternal - - The patient's father is , from throat cancer. Other details are unknown, as the patient is estranged from her biological father. The patient's mother is living, age 55, and healthy. Lives: - - Boyfriend Smoking Status: Never smoker Tobacco Use: Non-smoker Alcohol: Occasional Drugs: None Review of Systems Constitutional: Denies: Chills, Fever, Weight Change Eyes: Denies: Pain, Vision Change HEENT: Denies: Difficulty Hearing, Difficulty Swallowing, Sinus Congestion Cardiovascular: Denies: Chest Pain, Palpitations Respiratory: Denies: Cough, Shortness of Breath Gastrointestinal: Denies: Diarrhea, Nausea, Vomiting Genitourinary: Denies: Dysuria, Hematuria Endocrine: Denies: Heat/ Cold Intolerance, Polydipsia, Polyuria Hematologic/ Lymphatic: Denies: Easy Bruising, Easy Bleeding - Physical Exam Vital Signs Temp Pulse Resp BP 98.6 F 71 16 123/62 H 04/20/20 10:42 04/20/20 10:42 04/20/20 10:42 04/20/20 10:42 General: Alert, Oriented x3, Cooperative, No apparent distress, Well developed, Well nourished HEENT: Atraumatic, PERRLA, EOMI, Normocephalic Oral: Moist Mucosa Neck: No JVD Lungs: Normal air movement Abdomen: Non-Distended, Obese, - - The patient's vertical midline incision is now completely healed. There are no open sites. The incision is completely epithelialized. Extremities: No clubbing, No cyanosis, No edema, No Calf Tenderness Skin: No rashes, No breakdown Wound Measurements and Assessment WC - Nurse 1 - General Ulcer Measurement Start: 03/30/20 08:15 Freq: Status: Active Protocol: Activity Type Activity Date Activity User E-Sign Co-Sign Detail Recorded Client Recorded Date Recorded By Document 04/20/20 10:[address] [facility] [id number] 04/20/20 10:[address] [facility] 04/20/20 10:42 Wound Center Nurse 1 [Ulcer Assessment] #1 Abd -Combined with other wound No -Current Size (cm) - Length 0.1 -Current Size (cm) - Width 0.1 -Current Size (cm) - Depth 0.1 -Total Square Cm 0.01 -Epithelialization Large 67-100% -Texture (Hillary-wound Skin Appearance) Assessed -Moisture (Hillary-wound Skin Appearance Assessed ) -Color (Hillary-wound Skin Appearance) Assessed -Temperature (Hillary-wound Skin No Abnormality Appearance) (Pt Warm) -Tenderness on Palpation (Hillary-wound No Skin Appearance) -Ulcer Cleansing Rinsed/ Irrigated with Saline Musculoskeletal: No Muscle Wasting Neurological: Cranial nerves II-XII grossly intact, Neuro grossly intact Psych/Mental Status: Normal Affect, Appropriate, Alert and oriented to time, place, person, mood and affect Debridement Note Post-Debridement Measurements/Treatment WC - Nurse 2 - General Ulcer CM Notes Start: 03/30/20 08:15 Freq: Status: Active Protocol: Activity Type Activity Date Activity User E-Sign Co-Sign Detail Recorded Client Recorded Date Recorded By Document 03/30/20 08:56 PL [id number] 03/30/20 08:58 PL Document 04/06/20 12:53 PL [id number] 04/06/20 12:54 PL Document 04/13/20 17:02 PL [id number] 04/13/20 17:03 PL 03/30/20 04/06/20 04/13/20 08:56 12:53 17:02 Wound Center Nurse 2 #1 Abd -Time 11:59 09:09 -Correct Patient Yes Yes -Correct Side, Site, Position Yes Yes -Correct Procedure Yes Yes -Procedure Performed No Yes Yes -Type of Procedure Debridement Debridement -Clinical Debridement Subcutaneous Subcutaneous -Tissue Removed Subcutaneous Subcutaneous -Post Debridement (cm) - Length 1.4 0.2 -Post Debridement (cm) - Width 0.3 0.3 -Post Debridement (cm) - Depth 0.6 1 -Total Square (Post) (cm) 0.42 0.06 -Area of Debridement (cm) - Length 1.4 0.2 -Area of Debridement (cm) - Width 0.3 0.3 -Total Square (Area) (cm) 0.42 0.06 -Tunneling No No -Undermining/Tunneling No No -Circular Undermining No No -Wound/Ulcer Outcome Not Healed Not Healed Not Healed -Bioengineered Tissue No No No -Debridement - Subq, 1st 20sq cm Yes Yes Pain Scale: 0-10 Numeric Is Patient Pain Free? Yes Yes Yes - Nurse 3 - General Ulcer D/C NN Start: 03/30/20 08:15 Freq: Status: Active Protocol: Activity Type Activity Date Activity User E-Sign Co-Sign Detail Recorded Client Recorded Date Recorded By Document 03/30/20 09:[address] [facility] [id number] 03/30/20 09:[address] [facility] Document 04/06/20 12:53 PL [id number] 04/06/20 12:54 PL Document 04/13/20 09:15 DL [id number] 04/13/20 09:17 DL 03/30/20 04/06/20 04/13/20 09:17 12:53 09:15 Wound Care Nurse 3 #1 Abd -Ulcer Cleansing Rinsed/ Rinsed/ Irrigated with Irrigated with Saline Saline -Foul Odor after Cleansing No No -Primary Dressing Applied Nugauze, Iodoform -Other Dressing Iodoform moist gauze packing -Primary Dressing Covered/Secured with Secured with Dry Gauze, Dry Gauze, Tape,Other Secured with Secured with Tape Tape -Other Covering abd -Nugauze, Iodoform 08/02 1 Treatment Response Procedure Procedure Tolerated Well Tolerated Well Pain Scale: 0-10 Numeric Is Patient Pain Free? Yes Yes Yes WC - Visit Discharge Discharge Condition Stable Stable Stable Ambulatory Status Ambulatory Ambulatory Ambulatory Transportation Private Auto Private Auto Clinical Summary of Care Provided Yes No debridement was completed today - The patient's surgical wound is now completely healed and epithelialized. Assessment/Plan Active Problems (Last Updated 02/21/20 @ 10:[address] Shaista Daniels MD) anemia (Chronic) complication (Chronic) Wound dehiscence, (Chronic) Wound dehiscence, surgical (Chronic) Assessment: This is a 24-year-old female who is approximately 8 weeks . Her first child was delivered by means of a section via a low abdominal vertical midline incision. She developed 2 small dehiscent areas in the lower portion of her incision, located within the intertriginous folds of her lower abdomen. The 2 dehiscence sites are now completely healed and epithelialized. Plan: The patient's surgical incisional wound is now completely healed. She is to be discharged, and will follow-up henceforth on an as-needed basis. The patient weighs 230 pounds. She stands 5 feet 9 inches tall. Her BMI is 34.0, which places her in a class I obesity category. Weight loss has been discussed and recommended. She is not a smoker. Influenza vaccine was not administered today.
== END 2020-04-20 11:22 | disposition home or self-care (01) ==
LOC: WC 10:45
PROVIDERS: Obstetrics & Gynecology; Referring Provider Obstetrics & Gynecology; Visit Provider Surgery
DX: O90.0 Disruption of cesarean delivery wound (principal); E03.9 Hypothyroidism, unspecified; E66.9 Obesity, unspecified; Z68.34 Body mass index [BMI] 34.0-34.9, adult; D64.9 Anemia, unspecified; O90.81 Anemia of the puerperium
CPT/HCPCS: 11042; 36415; 80053; 82728; 84134; 84439; 84443; 84480; 84481; 85025; 99212; 99213; G0463

== ENCOUNTER → 2021-01-08 08:59 | Outpatient (CLI) | payer BC, SELFPAY ==
--- NOTE | 2021-01-08 09:05 | CT_ITS ---
STUDY: CT TEMPORAL BONES WITHOUT CONTRAST - ATTN: I.A.C. S REASON FOR EXAM: Female, 25 years old. EAR MASS RADIATION DOSAGE (If Supplied By Facility): CTDIvol = ( 67.58 ) mGy, DLP = ( 772.54 ) mGycm TECHNIQUE: The patient was scanned in a multi detector CT scanner. Transaxial imaging was performed without the administration of intravenous contrast material. Sagittal and coronal images were reconstructed. Individualized dose optimization techniques were used for this CT. COMPARISON: None. FINDINGS: RIGHT TEMPORAL BONE Normal right internal auditory canal. Normal visualized ossicles and tympanic cavity. Normal right cochlea and semicircular canals. Normal vestibular aqueduct. Normal right petrous carotid artery. Normal right jugular fossa. Normal right mastoid air cells. Normal right petrous apex. LEFT TEMPORAL BONE Normal left internal auditory canal. Normal visualized ossicles and tympanic cavity. Normal left cochlea and semicircular canals. Normal vestibular aqueduct. Normal left petrous carotid artery. Normal right jugular fossa. Normal left mastoid air cells. Normal left petrous apex. There is a 1 cm of the cortical bony excrescence of the lateral aspect of the left carpal bone superficial to the mastoid air cells corresponding to the patient''s palpable abnormality. This is likely of no significance. CT/Orb Sella Post Fossa Ear w/o IMPRESSION: Normal unenhanced CT examination of the bilateral temporal bones (I.A.C.''s). Electronically Signed: Abhinav Colmenares MD at 10:36 EDT Tel , Service support ,
== END ==
PROVIDERS: Referring Provider Otolaryngology Otolaryngology/Facial Plastic Surgery; Visit Provider Otolaryngology Otolaryngology/Facial Plastic Surgery
DX: D16.4 Benign neoplasm of bones of skull and face (principal)
CPT/HCPCS: 70480

== ENCOUNTER → 2021-05-03 12:20 | Outpatient (CLI) | payer BC, SELFPAY ==
[2021-05-03 13:57] LABS: Hematocrit 37.9 % (37-47); Hemoglobin 12.5 g/dL (12.0-15.0); Mean Corpuscular Hgb 27.8 pg (27.0-32.0); Mean Corpuscular Volume 84.4 fL (81-99); Mean Platelet Vol. 10.6 fl (6.2-12.0); Platelet Count 267 K/mm3 (150-450); RBC Distribution Width SD 43.5 fl (35.1-43.9); Red Blood Count 4.49 M/mm3 (4.2-5.4); White Blood Count 6.3 K/mm3 (4.4-11.0)
[2021-05-03 14:04] LABS: Scan Indicated on CBC? Y/N NO
[2021-05-03 14:18] LABS: Hemoglobin A1c 5.5 % (3.8-5.6)
[2021-05-03 14:42] LABS: Ferritin 13 ng/mL (8-252); Free T3 2.9 pg/mL (2.18-3.98); Iron 59 ug/dL (50-170); Iron Binding Capacity,Total 449 ug/dL (250-450); Prolactin 4.9 ng/mL; T4 Free Direct 1.07 ng/dL (0.76-1.46); Thyroid Stim Hormone (TSH) 1.65 uIU/mL (0.358-3.74)
== END ==
PROVIDERS: Visit Provider Obstetrics & Gynecology
DX: E03.9 Hypothyroidism, unspecified (principal); D50.9 Iron deficiency anemia, unspecified
CPT/HCPCS: 36415; 82728; 83036; 83540; 83550; 84146; 84439; 84443; 84481; 85027

== ENCOUNTER → 2022-04-25 | Outpatient (CLI) | payer BC, SELFPAY ==
[2022-04-25 12:23] LABS: Absolute Lymphocyte Count 1.57 X10^3/uL (0.83-4.51); Absolute Neutrophil Count 6.5 X10^3/uL (2.0-7.7); Basophil# 0.03 X10^3/uL; Basophil% 0.3 % (0-1); Eosinophil# 0.09 X10^3/uL; Hematocrit 39.1 % (37-47); Hemoglobin 13.5 g/dL (12.0-15.0); Lymphocyte # 1.57 X10^3/ul (0.83-4.51); Lymphocyte % 18.3 % (19-41); Mean Corp Hgb Conc 34.5 g/dL (32-36); Mean Corpuscular Hgb 29.4 pg (27.0-32.0); Mean Corpuscular Volume 85.2 fL (81-99); Mean Platelet Vol. 10.1 fl (6.2-12.0); Monocyte# 0.41 X10^3/uL; Monocyte% 4.8 % (0-10); NRBC Flagged by Analyzer 0 % (0-5); Neutrophil # 6.47 X10^3/uL (2.7-7.7); Neutrophil % 75.3 % (47-70); Platelet Count 234 K/mm3 (150-450); RBC Distribution Width SD 39.8 fl (35.1-43.9); Red Blood Count 4.59 M/mm3 (4.2-5.4); White Blood Count 8.6 K/mm3 (4.4-11.0)
[2022-04-25 12:45] LABS: T4 Free Direct 0.91 ng/dL (0.76-1.46)
[2022-04-25 13:19] LABS: HIV - WCH Non-Reactive (Nonreactive); Hepatitis B Surface Antigen Non-Reactive (Nonreactive); Hepatitis C Antibody Non-Reactive (Nonreactive); Rubella IgG Reactive (Nonreactive); Syphilis Antibodies Non-reactive
[2022-04-26 09:08] LABS: V-Zoster IgG (Immunity) 1067 index (Immune >165)
[2022-04-26 21:07] LABS: Chlamydia By Nucleic Acid AMP Negative (Negative)
[2022-04-27 16:21] LABS: Gonococcus By Nucleic Acid AMP Negative (Negative)
[2022-05-01 14:51] LABS: HPV Reflexed? NOT INDICATED
== END | disposition home or self-care (01) ==
LOC: WOBLAB 11:41
PROVIDERS: Visit Provider Obstetrics & Gynecology
DX: Z34.81 Encounter for supervision of other normal pregnancy, first trimester (principal); Z12.4 Encounter for screening for malignant neoplasm of cervix; Z11.3 Encounter for screening for infections with a predominantly sexual mode of transmission
CPT/HCPCS: 36415; 84439; 84443; 85025; 86703; 86762; 86780; 86787; 86803; 87077; 87086; 87088; 87186; 87340; 87491; 87591; 88175; G0145

== ENCOUNTER → 2022-05-22 | Outpatient (CLI) | payer OTHER, SELFPAY | END | disposition home or self-care (01) | PROVIDERS: Visit Provider Student in an Organized Health Care Education/Training Program | DX: Z22.330 Carrier of Group B streptococcus (principal) | CPT/HCPCS: 87077; 87086; 87088; 87186 ==

== ENCOUNTER → 2022-06-19 | Outpatient (CLI) | payer OTHER, SELFPAY ==
[2022-06-19 11:46] LABS: T4 Free Direct 0.78 ng/dL (0.76-1.46); Thyroid Stim Hormone (TSH) 1.48 uIU/mL (0.358-3.74)
== END | disposition home or self-care (01) ==
LOC: WOBLAB 10:39
PROVIDERS: Visit Provider Student in an Organized Health Care Education/Training Program
DX: E03.9 Hypothyroidism, unspecified (principal)
CPT/HCPCS: 36415; 84439; 84443

== ENCOUNTER → 2022-10-20 | Outpatient (CLI) | payer OTHER, SELFPAY ==
[2022-10-20 11:27] LABS: Hematocrit 34.6 % (37-47); Hemoglobin 11.1 g/dL (12.0-15.0); Mean Corp Hgb Conc 32.1 g/dL (32-36); Mean Corpuscular Hgb 26.8 pg (27.0-32.0); Mean Corpuscular Volume 83.6 fL (81-99); Mean Platelet Vol. 11.4 fl (6.2-12.0); Platelet Count 203 K/mm3 (150-450); RBC Distribution Width CV 14.4 % (11.6-14.6); RBC Distribution Width SD 43.3 fl (35.1-43.9); Red Blood Count 4.14 M/mm3 (4.2-5.4); White Blood Count 10.4 K/mm3 (4.4-11.0)
[2022-10-20 11:50] LABS: T4 Free Direct 0.85 ng/dL (0.76-1.46)
[2022-10-20 12:03] LABS: Syphilis Antibodies Non-reactive
== END | disposition home or self-care (01) ==
LOC: WOBLAB 10:44
PROVIDERS: Visit Provider Student in an Organized Health Care Education/Training Program
DX: Z34.93 Encounter for supervision of normal pregnancy, unspecified, third trimester (principal)
CPT/HCPCS: 36415; 84439; 84443; 85027; 86780

== ENCOUNTER 2022-10-27 05:00 | Inpatient (IN) | payer OTHER, SELFPAY ==
[2022-10-27] VITALS (68 sets, daily range): BP systolic 77–171; BP diastolic 47–103; PULSE 65–171; RESP 14–17; TEMP 36.2–36.9; O2SAT 81–99; BMI 40.7
[2022-10-27] MEDS: Lactated Ringers 1,000 ML 999 ML IV ×2 (05:20→10:30)
[2022-10-27 05:29] LABS: Absolute Lymphocyte Count 1.34 X10^3/uL (0.83-4.51); Absolute Neutrophil Count 11.9 X10^3/uL (2.0-7.7); Basophil# 0.03 X10^3/uL; Basophil% 0.2 % (0-1); Hematocrit 32.2 % (37-47); Hemoglobin 10.2 g/dL (12.0-15.0); Lymphocyte # 1.34 X10^3/ul (0.83-4.51); Lymphocyte % 9.5 % (19-41); Mean Corp Hgb Conc 31.7 g/dL (32-36); Mean Corpuscular Hgb 26.2 pg (27.0-32.0); Mean Corpuscular Volume 82.6 fL (81-99); Mean Platelet Vol. 11.1 fl (6.2-12.0); Monocyte% 4.9 % (0-10); NRBC Flagged by Analyzer 0 % (0-5); Neutrophil % 84.1 % (47-70); Platelet Count 212 K/mm3 (150-450); RBC Distribution Width CV 14.4 % (11.6-14.6); RBC Distribution Width SD 42.7 fl (35.1-43.9); White Blood Count 14.2 K/mm3 (4.4-11.0)
[2022-10-27] MEDS: Labetalol (Prefilled) 20 MG/4 ML IV (05:55)
[2022-10-27] MEDS: Magnesium Sulfate 4gm/100mL 4 GM/100 ML IV.SOLN. IV (06:08)
[2022-10-27] MEDS: Insulin Lispro 100 UNIT/ML INSULN.PEN 10 UNIT SC (06:12)
[2022-10-27] MEDS: Acetaminophen 500 MG Tablet 1000 MG PO ×3 (06:12→18:33)
[2022-10-27] MEDS: Lactated Ringers 1,000 ML 50 ML IV (06:24)
[2022-10-27] MEDS: Magnesium Sulfate 4gm/100mL 2 GM/50 ML IV.SOLN. IV (06:26)
[2022-10-27] MEDS: Magnesium Sulfate 20 GM/500 ML BAG IV ×2 (06:37→16:15)
[2022-10-27] MEDS: Sodium Citrate/Citric Acid 30 ML UDC PO (06:40)
[2022-10-27 07:03] LABS: ALB/GLOB Ratio 0.6 RATIO (0.9-2.4); AST(SGOT) 12 U/L (15-37); Alanine Aminotransfer ALT/SGPT 20 U/L (13-56); Albumin, Serum 2.3 g/dL (3.2-5.0); Alkaline Phosphatase 106 U/L (45-117); Anion Gap 9 (5-15); BUN 8 mg/dL (7-18); BUN/Creat Ratio 14.4 RATIO (10-20); Calcium,Total 8.3 mg/dL (8.5-10.1); Chloride 108 mmol/L (98-107); Creatinine, Serum 0.56 mg/dL (0.55-1.02); EST Glomerular Filtration Rate 138 mL/min (>60); Est Glom Filt Rate - Afr Amer 167 mL/min (>60); Estimated Creatinine Clearance 156.31 ml/min; Globulin 3.9 g/dL (2.2-4.2); Glucose 151 mg/dL (74-106); LDH 156 U/L (84-246); Potassium 3.4 mmol/L (3.5-5.1); Protein, Total 6.2 g/dL (6.4-8.2); Sodium Level 137 mmol/L (136-145)
--- NOTE | 2022-10-27 07:07 | HP.PCM.OB_ITS ---
History and Physical Date of Admission: 10/27/22 Chief complaint: Repeat section with history of uterine T-incision History present illness: 27-year-old at 36 weeks and 6 days with CHRIS 11/18/2022 arrives for repeat section with a history of uterine T-incision. Denies headache, vision changes, chest pain, shortness of breath, nausea vomit, right upper quadrant pain. Patient states good movement. is complicated by T-incision on skin and uterus, GDM A1, BMI 40, hypothyroid, GBS positive Obstetric history: G1: 39-week primary section for failure to progress male 9 pounds 13 ounces G2: Current Past medical history: Hypothyroid Medications: vitamin, Synthroid Allergies: Penicillin Past surgical history: section, cholecystectomy Family history: Denies history DVT or PE Social history: Denies smoking, alcohol use, drug use Review of systems: Besides above pertinent positives a full review of systems was performed and found to be negative Physical exam: Vitals: Pulse 88 SPO2 93% on room air General: Normal-appearing no acute distress HEENT: Normocephalic/atraumatic no cervical adenopathy Cardiac/respiratory: No use of accessory muscles, nonlabored breathing Abdomen: Soft, nontender, gravid Extremities: No peripheral edema normal peripheral pulses Psych: Normal affect normal non pressured speech Labs: White blood Cell count 14.2 hemoglobin 10.2 hematocrit 32.2% platelets 212. Sodium 137 potassium 3.4 creatinine 0.56 AST 12 ALT 20. Blood type a posi tive antibody negative Assessment and plan: 27-year-old G2, P1 at 36 weeks and 6 days for repeat section with history of T-incision on uterus. Educated patient on risks of procedure include but are not limited to visceral or vascular injury, prolonged hospitalization, blood loss and need for transfusion, reoperation. Patient state understanding wish to proceed. All questions were answered and consent was signed. For scheduled
[2022-10-27 07:10] LABS: Bedside Glucose 179 mg/dL (74-106)
[2022-10-27 07:10] LABS: Bedside Glucose 128 mg/dL (74-106)
[2022-10-27] MEDS: Insulin Lispro 100 UNIT/ML INSULN.PEN SC (07:12)
[2022-10-27 08:16] LABS: Bedside Glucose 93 mg/dL (74-106)
[2022-10-27 09:40] LABS: Protein, Urine (Random) 10.6 mg/dL (<11.9); Protein:Creat Ratio 331 mg/g CRE (0-200)
--- NOTE | 2022-10-27 09:48 | EX.PCM.OBRPT ---
Maternal Data Information Final CHRIS: 11/18/22 Details Operative Information Date of Procedure: 10/27/22 Pre-Operative Diagnosis: Molina intrauterine , GDM A1, history of uterine T-incision, Pre-eclampsia with Severe Features Post-Operative Diagnosis: Molina intrauterine , GDM A1, history of uterine T-incision, Pre-eclampsia with Severe Features Indications Narrative: This is a 27-year-old at 36/6 weeks, CHRIS 11/18/2022, admitted for repeat section for history of uterine T-incision. On admission patient was diagnosed with preeclampsia with severe features based on severe range blood pressures, she received magnesium sulfate and 20 mg of IV labetalol. She is also complicated by GDM A1, fasting blood sugar upon arrival was elevated, she received 15 units of insulin lispro. All risk, benefits, alternatives discussed with the patient. Risks include but are not limited to: Risk of bleeding to the point of transfusion, infection, injury to surrounding tissue including bowel/bladder potentially requiring prolonged Valentin catheter use, VTE, ICU admission. Patient aware and consented. Classification: Scheduled Procedure Type: low transverse Type of Anesthesia: Spinal Antibiotic Given: Ancef 3 grams IV x1 Estimated Blood Loss: 700 cc Fluids Replaced: 700 cc Findings Description of Procedure: Procedure: Patient was taken to the operating room and spinal anesthesia was placed. Patient was placed in the supine position with a left lateral tilt. Prepped and draped in the usual sterile fashion. Pfannenstiel skin incision made with scalpel and carried through underlying subcutaneous tissue. Adhesions of the fascia to the muscle was noted, more on the the patient's right side than the left. Small area of muscle separation was noted superiorly. Superior fascial edge was grasped with Geovanni clamps and tented up. Left rectus muscles were dissected off bluntly and sharply. Right muscles were dissected in a similar fashion using Beauchamp scissors. Geovanni clamps removed to the inferior fascial edge which was tented up and underlying rectus muscles were dissected in a similar fashion. Rectus muscles were superiorly using hemostats, peritoneum grasped with hemostats and incised medially with Metzenbaum scissors. Peritoneal entry extended using Bovie inferiorly and laterally. Bladder blade placed. Vesicouterine peritoneum identified, low in position. Scalpel used to make a low transverse uterine incision which was extended bluntly. Clear fluid. Head placed into the uterine cavity and elevated to the level of the hysterotomy. Bladder blade removed. With the assistance of gentle fundal pressure head brought to the hysterotomy. Use of vacuum x1 with 1 pop-off was used to assist in delivery. Peritoneum extended using bandage scissors. Head then delivered followed by body. No nuchal cord. Cord clamped and cut. Baby handed to nursing. Manual extraction of placenta. Peritoneal adhesion noted from the anterior uterus to the anterior abdominal wall. Grasped with Francesca clamp and excised using Bovie. Free tie tied around the portion on the anterior abdominal wall. Uterus left inside the abdominal cavity. Bladder blade placed. Noted separation of myometrium along the vertical portion of the prior hysterotomy. Hysterotomy closed with a running stitch, being sure to reapproximate the myometrium and the portion of the vertical incision. Second imbricating stitch placed. Hemostatic with 1 interrupted stitch. Hemostasis confirmed at the adhesion that was previously lysed. Peritoneum closed with a running stitch. Muscle reapproximated with horizontal mattress suture. Fascia closed with a running stitch. Subcutaneous tissue reapproximated with suture. Skin closed with running subcuticular stitch. At the end of the procedure all needle, lap, sponge counts were correct. UOP: 350cc clear urine Plan to continue magnesium sulfate for 24 hours postdelivery. Patient will receive 2 g Ancef every 8 hours for infection prophylaxis due to BMI and prior wound dehiscence, though this was secondary to T-incision on fascia and skin. We will check magnesium level at noon and 6 PM today and then 6 AM tomorrow. We will recheck blood sugar in recovery and determine further management based on this. Elevated blood sugar likely secondary to Celestone and Ensure drink. Infant A Gender: Male (1 minute): 8 (5 minute): 9 Complications Complications: None
--- NOTE | 2022-10-27 10:34 | NURSING ---
Call placed to Dr. Sophia Bruno at 1014 on Blood Pressures of 96/55, 87/49 then a BP reading of 77/56. Dr. Maico Bruno would like Forest to continue to be ran, but to update her again if blood pressures drop
[2022-10-27] MEDS: Oxytocin 15 Units/NS 250ml 15 UNITS/250 ML IV.SOLN 83 UNITS IV (10:40)
[2022-10-27 10:47] LABS: Syphilis Antibodies Non-reactive
[2022-10-27] MEDS: 0.9% Saline Lock 10 ML Syringe IV ×2 (10:56→17:29)
[2022-10-27] MEDS: Ketorolac 30 MG/ML Syringe IV ×3 (10:56→23:13)
--- NOTE | 2022-10-27 11:44 | NURSING ---
Alba Fuentes at bedside and ordered a fluid bolus on the pt.
[2022-10-27 12:01] LABS: Bedside Glucose 102 mg/dL (74-106)
[2022-10-27 12:40] LABS: Magnesium 4.1 mg/dL (1.6-2.6)
[2022-10-27] MEDS: Levothyroxine 50 MCG Tablet PO (12:45)
--- NOTE | 2022-10-27 13:14 | NURSING ---
Dr. Sophia Bruno placed call to unit, this RN updated her on Blood Sugar level of 102, and magnesium level of 4.1, she also was notified of the pt. BP of 107/53. Dr. Maico Bruno would like the pt. magenesium level to be moved from 2 to 2.5.
[2022-10-27] MEDS: Lactated Ringers 1,000 ML 15 ML IV (14:00)
[2022-10-27] MEDS: Cefazolin 2 GM in 0.9% Normal Saline 100 ML IV (18:34)
[2022-10-27 18:41] LABS: Magnesium 4.9 mg/dL (1.6-2.6)
--- NOTE | 2022-10-27 18:47 | NURSING ---
Call placed to Dr. Sophia Bruno on Magnesium level of 4.9. Dr. Sophia rBuno was ok with Magnesium to stay at 2.5
[2022-10-27] MEDS: Enoxaparin 40 MG/0.4 ML Syringe SC (23:12)
[2022-10-28] VITALS (16 sets, daily range): BP systolic 102–120; BP diastolic 53–79; PULSE 61–85; RESP 16–20; TEMP 36.1–37.2; O2SAT 93–98
[2022-10-28] MEDS: Acetaminophen 500 MG Tablet 1000 MG PO ×4 (00:12→19:18)
[2022-10-28] MEDS: Magnesium Sulfate 20 GM/500 ML BAG IV (00:55)
[2022-10-28] MEDS: Cefazolin 2 GM in 0.9% Normal Saline 100 ML IV ×2 (02:17→10:14)
[2022-10-28] MEDS: Ketorolac 30 MG/ML Syringe IV (04:46)
[2022-10-28 06:45] LABS: Bedside Glucose 100 mg/dL (74-106)
[2022-10-28 06:50] LABS: Hematocrit 28.3 % (37-47); Hemoglobin 8.9 g/dL (12.0-15.0); Mean Corp Hgb Conc 31.4 g/dL (32-36); Mean Corpuscular Hgb 26.4 pg (27.0-32.0); Mean Platelet Vol. 11.6 fl (6.2-12.0); Platelet Count 206 K/mm3 (150-450); RBC Distribution Width CV 14.8 % (11.6-14.6); RBC Distribution Width SD 45.1 fl (35.1-43.9); Red Blood Count 3.37 M/mm3 (4.2-5.4); White Blood Count 11.3 K/mm3 (4.4-11.0)
[2022-10-28] MEDS: Levothyroxine 50 MCG Tablet PO (06:50)
[2022-10-28 07:26] LABS: ALB/GLOB Ratio 0.6 RATIO (0.9-2.4); AST(SGOT) 21 U/L (15-37); Alanine Aminotransfer ALT/SGPT 27 U/L (13-56); Albumin, Serum 2.2 g/dL (3.2-5.0); Alkaline Phosphatase 104 U/L (45-117); Anion Gap 6 (5-15); BUN 14 mg/dL (7-18); BUN/Creat Ratio 24.5 RATIO (10-20); Calcium,Total 7.3 mg/dL (8.5-10.1); Chloride 107 mmol/L (98-107); Creatinine, Serum 0.57 mg/dL (0.55-1.02); EST Glomerular Filtration Rate 134 mL/min (>60); Est Glom Filt Rate - Afr Amer 162 mL/min (>60); Estimated Creatinine Clearance 153.56 ml/min; Globulin 3.4 g/dL (2.2-4.2); Glucose 108 mg/dL (74-106); LDH 205 U/L (84-246); Magnesium 5.5 mg/dL (1.6-2.6); Potassium 3.9 mmol/L (3.5-5.1); Protein, Total 5.6 g/dL (6.4-8.2); Sodium Level 137 mmol/L (136-145)
--- NOTE | 2022-10-28 10:06 | PN.OBGYN_ITS ---
Subjective Subjective No overnight complaints. Denies headache, vision change, chest pain, shortness of breath, nausea vomit, right upper quadrant pain. Objective Data Objective Data Vital Signs: Vital Signs Temp Pulse Resp BP Pulse Ox O2 Del Method 97.2 F L 78 16 108/79 96 Room Air 10/28/22 06:24 10/28/22 07:36 10/28/22 07:36 10/28/22 07:36 10/28/22 07:36 10/28/22 07:36 Oxygen Delivery Method Room Air Weight: 276 lb Body Mass Index (BMI) 40.7 Intake & Output: Intake and Output for Last 24 Hours 10/26/22 10/27/22 10/28/22 23:59 23:59 23:59 Intake Total 3480.5 / 3480.5 890 / 890 Output Total 1750 / 1750 600 / 600 Balance 1730.5 / 1730.5 290 / 290 Lab / Micro Data Result Diagrams: 10/28/22 06:00 10/28/22 06:00 Labs: Laboratory Results - last 24 hr 10/27/22 05:20: Syphilis Total Ab Non-reactive 10/27/22 11:03: POC Glucose 102 10/27/22 12:15: Magnesium 4.1 H 10/27/22 18:10: Magnesium 4.9 H 10/28/22 06:00: Sodium 137, Potassium 3.9, Chloride 107, Carbon Dioxide 24.0, Anion Gap 6, BUN 14, Creatinine 0.57, Estim Creat Clear Calc 153.56, Est GFR (MDRD) Af Amer 162, Est GFR (MDRD) Non-Af 134, BUN/Creatinine Ratio 24.5 H, Glucose 108 H, Calcium 7.3 L, Magnesium 5.5 H*, Total Bilirubin 0.20, AST 21, ALT 27, Alkaline Phosphatase 104, Lactate Dehydrogenase 205, Total Protein 5.6 L , Albumin 2.2 L, Globulin 3.4, Albumin/Globulin Ratio 0.6 L 10/28/22 06:00: WBC 11.3 H, RBC 3.37 L, Hgb 8.9 L, Hct 28.3 L, MCV 84.0, MCH 26.4 L, MCHC 31.4 L, RDW Std Deviation 45.1 H, RDW Coeff of Baldemar 14.8 H, Plt Count 206, MPV 11.6 10/28/22 06:07: POC Glucose 100 Physical Exam Const alert, oriented x3, no apparent distress, average body habitus, healthy appearing and well nourished HEENT normocephalic and moist oral mucous membranes Eyes PERRL Neck full ROM Resp normal respiratory effort, no retractions and no use of accessory muscles GI GI Narrative: Soft, nontender, bandage clean dry and intact Extremity normal to inspection, full ROM and no clubbing, cyanosis or edema Neuro moves all extremities, no focal motor deficits and deep tendon reflexes 2+ bilaterally Motor Exam: clonus absent Psych mental status grossly normal, affect normal, speech normal and activity/motor behavior normal Assessment & Plan (1) Delivery by section: PLAN: Postop day 1 status post repeat section at 36 weeks and 6 days with history of uterine T-incision. Ancef x24 hours. GDM A1, will follow . Preeclampsia with severe features status post magnesium x24 hours . Currently on no blood pressure medications and asymptomatic. We will continue to monitor. Discussed with patient that she will need monitoring until day 3 today for pending blood pressures and evaluation. Patient states understanding all questions answered for patient and partner
[2022-10-28] MEDS: Ibuprofen 600 MG Tablet PO ×3 (10:13→22:58)
[2022-10-28] MEDS: Senna/Docusate Sodium 1 Tablet PO (10:13)
[2022-10-28] MEDS: Enoxaparin 40 MG/0.4 ML Syringe SC (10:14)
[2022-10-28] MEDS: 0.9% Saline Lock 10 ML Syringe IV (10:14)
[2022-10-28] MEDS: Lactated Ringers 1,000 ML 15 ML IV (10:23)
[2022-10-29 01:00] VITALS: BP 122/71; PULSE 87; RESP 16; TEMP 36.9
[2022-10-29] MEDS: Acetaminophen 500 MG Tablet 1000 MG PO ×4 (01:17→20:45)
[2022-10-29] MEDS: Ibuprofen 600 MG Tablet PO ×3 (05:19→18:15)
[2022-10-29] MEDS: 0.9% Saline Lock 10 ML Syringe IV ×2 (05:21→10:18)
[2022-10-29 05:25] VITALS: BP 130/79; PULSE 75
[2022-10-29] MEDS: Levothyroxine 50 MCG Tablet PO (06:40)
[2022-10-29 07:52] VITALS: BP 129/85; PULSE 89; RESP 18; TEMP 36.8; O2SAT 96
[2022-10-29] MEDS: Senna/Docusate Sodium 1 Tablet PO (10:18)
[2022-10-29] MEDS: Enoxaparin 40 MG/0.4 ML Syringe SC (10:18)
[2022-10-29 11:59] VITALS: BP 140/85; PULSE 84; RESP 18; TEMP 36.2; O2SAT 98
--- NOTE | 2022-10-29 12:00 | PN.OBGYN_ITS ---
Subjective Subjective No overnight complaints. Denies headache, vision change, chest pain, shortness of breath, nausea vomit, right upper quadrant pain. Objective Data Objective Data Vital Signs: Vital Signs Temp Pulse Resp BP Pulse Ox O2 Del Method 98.2 F 89 18 129/85 H 96 Room Air 10/29/22 07:52 10/29/22 07:52 10/29/22 07:52 10/29/22 07:52 10/29/22 07:52 10/29/22 07:52 Oxygen Delivery Method Room Air Weight: 276 lb Body Mass Index (BMI) 40.7 Intake & Output: Intake and Output for Last 24 Hours 10/27/22 10/28/22 10/29/22 23:59 23:59 23:59 Intake Total 3480.5 / 3480.5 1815.00 / 1815.00 Output Total 1750 / 1750 600 / 600 Balance 1730.5 / 1730.5 1215.00 / 1215.00 Lab / Micro Data Result Diagrams: 10/28/22 06:00 10/28/22 06:00 Physical Exam Const alert, oriented x3, no apparent distress, average body habitus, healthy appearing and well nourished HEENT normocephalic and moist oral mucous membranes Eyes PERRL Neck full ROM Resp normal respiratory effort, no retractions and no use of accessory muscles GI GI Narrative: Soft, nontender, bandage clean dry and intact Extremity normal to inspection, full ROM and no clubbing, cyanosis or edema Neuro moves all extremities and no focal motor deficits Psych mental status grossly normal, affect normal, speech normal and activity/motor b ehavior normal Assessment & Plan (1) Delivery by section: PLAN: Postop day 2 status post repeat section. Pain well controlled. GDM A1 we will follow-up . Preeclampsia with severe features based on severe range blood pressures status post magnesium x24 hours. On no blood pressure medications orally. Patient neel asymptomatic. We will continue to monitor. Discussed outpatient at home blood pressure checks along with blood p ressure check in office. Patient states understanding. Discussed wound care for patient's wound versus frequent follow-up, patient for frequent follow-up will evaluate outpatient and if needed consult wound care.
[2022-10-29 16:20] VITALS: BP 121/79; PULSE 75; RESP 16; TEMP 36.8; O2SAT 97
[2022-10-29 20:00] VITALS: BP 127/80; PULSE 81; RESP 18; TEMP 36.7; O2SAT 97
[2022-10-30] MEDS: Ibuprofen 600 MG Tablet PO ×2 (00:12→06:08)
[2022-10-30 00:15] VITALS: BP 122/68; PULSE 85; RESP 16
[2022-10-30] MEDS: Acetaminophen 500 MG Tablet 1000 MG PO ×2 (02:55→09:02)
[2022-10-30] MEDS: 0.9% Saline Lock 10 ML Syringe IV (02:58)
[2022-10-30 03:00] VITALS: BP 113/68; PULSE 71; RESP 16
[2022-10-30] MEDS: Levothyroxine 50 MCG Tablet PO (06:09)
[2022-10-30 09:00] VITALS: BP 120/70; PULSE 75; RESP 16; TEMP 36.9; O2SAT 98
--- NOTE | 2022-10-30 09:12 | DS.PCM_ITS ---
Discharge Summary Date of Admission: 10/27/22 Date of Discharge: 10/30/22 Summary: Patient arrived on 10/27/2022 for scheduled section with a history of T- incision at 36 weeks. Subsequently diagnosed with preeclampsia with severe features based on severe range blood pressures. Repeat section at 36 weeks performed on 10/27/2022. Magnesium was continued for 24 hours. No oral blood pressure medications were required. Patient was discharged home on 10/30/2022 on no blood pressure medications, to take blood pressure at home Meaningful Use Info Meaningful Use Diagnoses (Choose all that apply): None applicable Discharge Plan Admission Admit Date/Time: 10/27/22 05:00 Primary Reason for Your Visit: Repeat section Attending Provider: Sophia Bruno Primary Care Provider: Cindy Harden Primary Instructions Additional Instructions / Restrictions: Regular diet. Okay to shower. No tub baths for 2 weeks. No lifting over 25 pounds for 2 to 3 weeks. Call if fevers, chills, chest pain, shortness of breath. Follow-up 3 to 5 days for blood pressure check and wound check Discharge Orders/Prescriptions Prescriptions: New oxycodone 5 mg Tablet 5 mg PO Q6H PRN PRN (Reason: Pain Score 7-10) 4 Days Qty: 16 0RF Continued levothyroxine 50 MCG tablet 50 mcg PO DAILY sennosides-docusate sodium 1 TABLET tablet 1 - 2 tab PO DAILY Qty: 30 0RF ibuprofen 600 MG tablet 600 mg PO Q8H PRN (Reason: Pain Or Fever) Qty: 30 0RF Referrals / Follow Up: Care Cindy Zamorano Primary [Primary Care Provider] - Disposition Disposition (needs filled in before D/C Order can be placed): Home, Self Care
--- NOTE | 2022-10-30 09:16 | PN.OBGYN_ITS ---
Subjective Subjective No overnight complaints. Denies headache, vision change, chest pain, shortness of breath, nausea vomit, right upper quadrant pain Objective Data Objective Data Vital Signs: Vital Signs Temp Pulse Resp BP Pulse Ox O2 Del Method 98.1 F 71 16 113/68 97 Room Air 10/29/22 20:00 10/30/22 03:00 10/30/22 03:00 10/30/22 03:00 10/29/22 20:00 10/29/22 20:00 Oxygen Delivery Method Room Air Weight: 276 lb Body Mass Index (BMI) 40.7 Intake & Output: Intake and Output for Last 24 Hours 10/28/22 10/29/22 10/30/22 23:59 23:59 23:59 Intake Total 1815.00 / 1815.00 Output Total 600 / 600 Balance 1215.00 / 1215.00 Lab / Micro Data Result Diagrams: 10/28/22 06:00 10/28/22 06:00 Physical Exam Const alert, oriented x3, no apparent distress, average body habitus, healthy appearing and well nourished HEENT normocephalic and moist oral mucous membranes Eyes PERRL Neck full ROM Resp normal respiratory effort, no retractions and no use of accessory muscles GI GI Narrative: Soft, nontender, bandage clean dry and intact Extremity normal to inspection, full ROM and no clubbing, cyanosis or edema Neuro moves all extremities and no focal motor deficits Psych mental status grossly normal, affect normal, speech normal and activity/motor behavior normal Assessment & Plan (1) Delivery by section: PLAN: Postoperative day 3 status post repeat section at 36 weeks for history of uterine T-incision. Pain well controlled. Preeclampsia with severe features based on severe range blood pressures status post magnesium. On no bl ood pressure medications. Asymptomatic. Patient okay to discharge home today, to follow-up in office for blood pressure check and wound check. To take at home blood pressures, parameters given
[2022-10-30] MEDS: Enoxaparin 40 MG/0.4 ML Syringe SC (10:27)
[2022-10-30] MEDS: Senna/Docusate Sodium 1 Tablet PO (10:28)
== END 2022-10-30 11:00 | disposition home or self-care (01) | DRG 788 ==
PROVIDERS: Admitting Provider Student in an Organized Health Care Education/Training Program; Referring Provider Student in an Organized Health Care Education/Training Program; Visit Provider Student in an Organized Health Care Education/Training Program
PROC: 10D00Z1 Extraction of Products of Conception, Low, Open Approach (ICD-10-PCS; CPT 59514; principal; 2022-10-27 06:55)
DX: O14.14 Severe pre-eclampsia complicating childbirth (principal); O24.420 Gestational diabetes mellitus in childbirth, diet controlled; E03.9 Hypothyroidism, unspecified; O34.218 Maternal care for other type scar from previous cesarean delivery; O99.284 Endocrine, nutritional and metabolic diseases complicating childbirth; O99.824 Streptococcus B carrier state complicating childbirth; Z37.0 Single live birth; Z3A.36 36 weeks gestation of pregnancy; Z90.49 Acquired absence of other specified parts of digestive tract; Z79.899 Other long term (current) drug therapy; Z87.59 Personal history of other complications of pregnancy, childbirth and the puerperium
CPT/HCPCS: 59025; 59050; 80053; 82570; 82962; 83615; 83735; 84156; 85025; 85027; 86780; 86850; 86900; 86901; 99221; J7120; A4216; G0378; J2405

== ENCOUNTER → 2022-12-18 | Outpatient (CLI) | payer OTHER, SELFPAY ==
[2022-12-18 11:11] LABS: T4 Free Direct 0.88 ng/dL (0.76-1.46); Thyroid Stim Hormone (TSH) 1.58 uIU/mL (0.358-3.74)
[2022-12-18 13:19] LABS: Glucose 2 Hour Postprandial 87 mg/dL (<140)
== END | disposition home or self-care (01) ==
LOC: WOBLAB 10:11
PROVIDERS: Visit Provider Student in an Organized Health Care Education/Training Program
DX: Z48.816 Encounter for surgical aftercare following surgery on the genitourinary system (principal)
CPT/HCPCS: 36415; 82950; 84439; 84443

== ENCOUNTER → 2024-10-14 | Outpatient (CLI) | payer BC, SELFPAY ==
[2024-10-14 10:36] LABS: Absolute Lymphocyte Count 1.65 X10^3/uL (0.83-4.51); Absolute Neutrophil Count 4.3 X10^3/uL (2.0-7.7); Basophil# 0.04 X10^3/uL; Basophil% 0.6 % (0-1); Eosinophil# 0.11 X10^3/uL; Eosinophils% 1.7 % (0-5); Hematocrit 34.7 % (37-47); Hemoglobin 11.5 g/dL (12.0-15.0); Lymphocyte # 1.65 X10^3/ul (0.83-4.51); Lymphocyte % 25.7 % (19-41); Mean Corp Hgb Conc 33.1 g/dL (32-36); Mean Corpuscular Hgb 30.1 pg (27.0-32.0); Mean Corpuscular Volume 90.8 fL (81-99); Mean Platelet Vol. 8.8 fl (6.2-12.0); Monocyte# 0.26 X10^3/uL; NRBC Flagged by Analyzer 0 % (0-5); Neutrophil # 4.32 X10^3/uL (2.7-7.7); Neutrophil % 67.2 % (47-70); Platelet Count 495 K/mm3 (150-450); RBC Distribution Width CV 12.9 % (11.6-14.6); RBC Distribution Width SD 42.8 fl (35.1-43.9); Red Blood Count 3.82 M/mm3 (4.2-5.4); White Blood Count 6.4 K/mm3 (4.4-11.0)
[2024-10-14 10:50] LABS: ALB/GLOB Ratio 1.1 RATIO (0.9-2.4); AST(SGOT) 20 U/L (<=31); Alanine Aminotransfer ALT/SGPT 29 U/L (<=34); Albumin, Serum 3.8 g/dL (3.5-5.0); Alkaline Phosphatase 99 U/L (35-104); Anion Gap 11 (5-15); BUN 13 mg/dL (4-19); BUN/Creat Ratio 20.3 RATIO (10-20); Calcium,Total 9.4 mg/dL (7.6-11.0); Carbon Dioxide 26.3 mmol/L (21.0-32.0); Chloride 105 mmol/L (98-108); Cholesterol 191 mg/dL (<=200); Creatinine, Serum 0.65 mg/dL (0.70-1.20); EST Glomerular Filtration Rate 122 (>60); Globulin 3.4 g/dL (2.2-4.2); Glucose 83 mg/dL (70-99); High Density Lipoprotein 44 mg/dL; Low Density Lipoprotein Calc. 129 mg/dL; Protein, Total 7.2 g/dL (5.9-8.4); Sodium Level 142 mmol/L (133-145); Total Bilirubin 0.51 mg/dL (0.00-1.30); Triglycerides 87 mg/dL; Very Low Density Lipoprotein 17 mg/dL (5-40); cholesterol:hdl ratio screen 4.32
== END | disposition home or self-care (01) ==
PROVIDERS: PCP Family Medicine; Referring Provider Family Medicine; Visit Provider Family Medicine
DX: Z00.00 Encounter for general adult medical examination without abnormal findings (principal); Z13.1 Encounter for screening for diabetes mellitus; Z13.220 Encounter for screening for lipoid disorders; E03.9 Hypothyroidism, unspecified
CPT/HCPCS: 36415; 80053; 80061; 84439; 84443; 85025

== ENCOUNTER → 2025-04-16 | Outpatient (CLI) | payer BC, SELFPAY | END | disposition home or self-care (01) | LOC: MTLAB 13:31 | PROVIDERS: PCP Family Medicine; Referring Provider Family Medicine; Visit Provider Family Medicine | DX: E03.9 Hypothyroidism, unspecified (principal) | CPT/HCPCS: 36415; 84439; 84443 ==